=== PATIENT | female | born 1945 | race Caucasian/White ===

== ENCOUNTER 2019-09-01 14:49 | Inpatient (IN) | payer MEDICARE, OTHER ==
[~2019-09-01] VITALS: Ht 152.4 cm; Wt 82.1 kg
[2019-09-01] MEDS ORDERED: Z GUARD REMEDY PASTE 57 GM TUBE TOP PRN (17:30)
[2019-09-01 17:56] VITALS: BP 136/55
[2019-09-01] MEDS ORDERED: MELA3TAB52 PO (18:18)
[2019-09-01] MEDS ORDERED: DEXT1DRO3 EACHEYE (18:18)
[2019-09-01] MEDS ORDERED: GABA-532 PO (18:18)
[2019-09-01] MEDS ORDERED: CITA20TA16 PO (18:18)
[2019-09-01] MEDS ORDERED: PROT30LI PO (18:18)
[2019-09-01] MEDS ORDERED: ASCO-375 PO (18:18)
[2019-09-01] MEDS ORDERED: GLIP5TAB13 PO (18:18)
[2019-09-01] MEDS ORDERED: AMLO5TAB9 PO (18:18)
[2019-09-01] MEDS ORDERED: EMPA25TA PO (18:18)
[2019-09-01] MEDS ORDERED: BETA1TAB19 PO (18:18)
[2019-09-01] MEDS ORDERED: ACET-2154 PO (18:18)
[2019-09-01] MEDS ORDERED: CEFT2VIA14 IV (18:18)
[2019-09-01] MEDS ORDERED: LACT10SO PO (18:18)
[2019-09-01] MEDS ORDERED: BISA10SU61 RC (18:18)
[2019-09-01] MEDS ORDERED: ACID1TAB4 PO (18:18)
[2019-09-01] MEDS ORDERED: SIMV-49 PO (18:18)
[2019-09-01] MEDS ORDERED: LACTULOSE 20 G/30 ML LIQUID UDC PO PRN (18:45)
[2019-09-01] MEDS ORDERED: POLYVINYL ALCOHOL OPHT DROPS 15 ML BOTTLE EACHEYE PRN (18:45)
[2019-09-01] MEDS ORDERED: GABAPENTIN 100 MG CAPSULE PO SCH (18:45)
[2019-09-01] MEDS ORDERED: BISACODYL 10 MG SUPP.RECT RC PRN (18:45)
--- NOTE | 2019-09-01 19:03 | NUR ---
Admitted this 74 y/o female from [facility] diagnosed with left great toe osteomyelitis. Patient is alert, oriented x 3, not in any form of distress, on room air. She denies any pain or discomfort. Patient oriented to staff, room and use of room devices with verbalized understanding. With right upper arm midline with 2 ports, patent with no signs of infection. Left foot wrapped with noah bandage, clean and dry. Routine admission care done. Assisted with her needs. Call light and frequently used items placed within patient's reach. Dr. Lugo made aware of admission. Dr. Galvan informed of admission, verified medications and given orders for CBC, CMP in am as well as continue accu-checks ACHS, no sliding scale. Call light and frequently used items placed within patient's reach. Safety measures maintained.
[2019-09-01 20:09] VITALS: BP 119/50
[2019-09-01] MEDS ORDERED: SIMVASTATIN 40 MG TABLET PO SCH (21:00)
[2019-09-01] MEDS: CEFTRIAXONE 2 G in IV DEXTROSE 5% 100 ML IV SCH (21:05)
[2019-09-01] MEDS: ATORVASTATIN 20 MG TABLET PO SCH (21:05)
[2019-09-01] MEDS: GABAPENTIN 100 MG CAPSULE PO SCH (21:05)
[2019-09-01] MEDS: MELATONIN 3 MG TABLET PO SCH (21:05)
[2019-09-01] MEDS: BLOOD SUGAR DIAGNOSTIC 1 EACH STRIP VI SCH (21:50)
[2019-09-02 00:12] VITALS: BP 132/54
[2019-09-02 04:15] VITALS: BP 132/54
--- NOTE | 2019-09-02 06:11 | NUR ---
Pt slept comfortably t/o the night. Pertinent assessment done during admission last night. All needs attended to promptly. Pt refused to have picture taken, offered last night and this morning. Explained purpose and still refused. Safety measures maintained. Call light and personal items within reach. Will endorse accordingly. Continue to monitor. Addendum: 09/02/19 at 0641 by Francois Mccrary RN pt agreed to take pic of sacrum and groin area
[2019-09-02 06:31] LABS: BASOPHILS % (AUTO) 0.5 % (0.0-2.0); EOSINOPHILS # (AUTO) 0.2 K/uL (0.0-0.7); EOSINOPHILS % (AUTO) 2.4 % (0.0-7.0); HEMATOCRIT 29.5 % (31.2-41.9); HEMOGLOBIN 9.4 g/dL (10.9-14.3); LYMPHOCYTES # (AUTO) 1.6 K/uL (20.0-40.0); LYMPHOCYTES % (AUTO) 16.8 % (20.5-51.5); MEAN CORPUSCULAR HEMOGLOBIN 27.3 uug (24.7-32.8); MEAN CORPUSCULAR HGB CONC 32 g/dL (32.3-35.6); MEAN CORPUSCULAR VOLUME 85.3 fL (75.5-95.3); MONOCYTES # (AUTO) 0.9 K/uL (2.0-10.0); MONOCYTES % (AUTO) 9.9 % (0.0-11.0); NEUTROPHILS # (AUTO) 6.6 K/uL (1.8-8.9); NEUTROPHILS % (AUTO) 70.4 % (38.5-71.5); PLATELET COUNT (AUTO) 255 K/uL (179-408); RED BLOOD CELL COUNT(AUTO) 3.45 MIL/uL (3.63-4.92); WHITE BLOOD COUNT (AUTO) 9.3 K/uL (3.8-11.8)
[2019-09-02] MEDS: BLOOD SUGAR DIAGNOSTIC 1 EACH STRIP VI SCH ×4 (06:36→21:13)
[2019-09-02 06:57] LABS: ALANINE AMINOTRANSFERASE 14 U/L (14-59); ALKALINE PHOSPHATASE 73 U/L (50-136); ASPARTATE AMINOTRANSFERASE 18 U/L (15-37); BILIRUBIN,TOTAL 0.2 mg/dL (0.2-1.0); CARBON DIOXIDE 28 mmol/L (21-32); CHLORIDE 107 mmol/L (98-107); CREATININE 2.3 mg/dL (0.6-1.3); GLUCOSE 113 mg/dL (74-106); POTASSIUM 4.2 mmol/L (3.5-5.1); TOTAL PROTEIN, SERUM 7.5 g/dL (6.4-8.2); UREA NITROGEN, BLOOD 62 mg/dL (7-18)
[2019-09-02] MEDS ORDERED: glipiZIDE 5 MG TABLET PO SCH (07:30)
[2019-09-02 08:00] VITALS: BP 117/51
[2019-09-02] MEDS: GABAPENTIN 100 MG CAPSULE PO SCH ×2 (08:49→17:19)
[2019-09-02] MEDS: ACIDOPHILUS/BULGARICUS CHEW TAB PO SCH (08:49)
[2019-09-02] MEDS: BETA CAROTENE/VIT C & E/MIN TABLET PO SCH (08:49)
[2019-09-02] MEDS: CITALOPRAM 20 MG TABLET PO SCH (08:49)
[2019-09-02] MEDS: AMLODIPINE 5 MG TABLET PO SCH (08:49)
[2019-09-02] MEDS: PROTEIN SUPPLEMENT (PROSTAT) 30 ML LIQUID PO SCH ×2 (08:50→17:20)
[2019-09-02] MEDS: ASCORBIC ACID 500 MG TABLET PO SCH (08:50)
[2019-09-02] MEDS ORDERED: PATIENT MAY USE OWN MED- MD OK PO SCH ×2 (09:00)
[2019-09-02] MEDS ORDERED: HOME MED MISCELLANEOUS PO SCH (09:00)
--- NOTE | 2019-09-02 11:22 | NUR ---
WOUND CARE CONSULT: PT REFUSED SKIN ASSESSMENT BUT PHOTO DOCUMENTATION FROM ADMISSION SHOWS REDNESS WITH RASH AND PEELING SKIN TO SACRAL/BUTTOCKS AREA AND INNER THIGHS/PERINEUM, PRESENT ON ADMISSION. RECOMMENDATIONS MADE FOR SKIN CARE AND PROTECTION. DISCUSSED WITH NURSING STAFF. WILL SEE PRN. JOHNSON IN AGREEMENT WITH PLAN OF CARE.
[2019-09-02] MEDS ORDERED: DEXTROSE 50% 50 ML DISP.SYRIN IV PRN (11:45)
[2019-09-02] MEDS: INSULIN REGULAR, HUMAN 300 UNIT/3 ML VIAL SQ PRN ×2 (13:02→21:14)
[2019-09-02 16:26] VITALS: BP 112/41
[2019-09-02] MEDS: glipiZIDE 5 MG TABLET PO SCH (17:19)
[2019-09-02] MEDS: CLOTRIMAZOLE 1% CREAM 30 GM TUBE TOP SCH (17:19)
--- NOTE | 2019-09-02 17:26 | NUR ---
pt refused to have accucheck done because she states she does not need insulin. pt also refused to turn and have clomitrazole cream applied. will continue to attend to needs.
[2019-09-02 20:33] VITALS: BP 127/52
[2019-09-02] MEDS: ACETAMINOPHEN 325 MG TABLET PO PRN (21:06)
[2019-09-02] MEDS: ATORVASTATIN 20 MG TABLET PO SCH (21:06)
[2019-09-02] MEDS: MELATONIN 3 MG TABLET PO SCH (21:06)
[2019-09-02] MEDS: CEFTRIAXONE 2 G in IV DEXTROSE 5% 100 ML IV SCH (21:07)
[2019-09-03 04:53] VITALS: BP 125/53
--- NOTE | 2019-09-03 05:18 | NUR ---
Received patient resting in bed. No signs and symptoms of distress noted, no SOB, on RA. Patient is alert, oriented x 4, denies any pain or discomfort. Vitals stable, gave Tylenol for low grade fever 100.4. Patient received due medications. Accucheck 179, patient refused coverage with insulin states she take metformin in the morning. Infused IV antibiotic, no reaction noted. Patient has redness on groin, buttox and inner thighs, refused Lotrimin cream,cleansed and dried skin after incontinence. Skin is intact, ALBERTO midline with 2 ports, patent with no signs of infection. Left foot wrapped with noah bandage, clean and dry. Routine PM care completed. All needs attended too. safety precautions in place, bed locked and lowered, bed railsx2 and Call light and frequently used items placed within patient's reach. Will continue plan of care, endorse AM shift nurse accordingly.
--- NOTE | 2019-09-03 05:46 | NUR ---
Patient slept through the night, no events reported. Am care completed Lotrimin cream applied to affected areas. Kept clean dry and comfortable, all needs attended to promptly.
[2019-09-03] MEDS: glipiZIDE 5 MG TABLET PO SCH ×2 (06:58→17:27)
[2019-09-03] MEDS: BLOOD SUGAR DIAGNOSTIC 1 EACH STRIP VI SCH (07:11)
[2019-09-03] MEDS: ASCORBIC ACID 500 MG TABLET PO SCH (08:57)
[2019-09-03] MEDS: CITALOPRAM 20 MG TABLET PO SCH (08:57)
[2019-09-03] MEDS: GABAPENTIN 100 MG CAPSULE PO SCH ×2 (08:57→17:23)
[2019-09-03] MEDS: BETA CAROTENE/VIT C & E/MIN TABLET PO SCH (08:58)
[2019-09-03] MEDS: ACIDOPHILUS/BULGARICUS CHEW TAB PO SCH (08:58)
[2019-09-03] MEDS: AMLODIPINE 5 MG TABLET PO SCH (08:59)
[2019-09-03] MEDS: PROTEIN SUPPLEMENT (PROSTAT) 30 ML LIQUID PO SCH ×2 (09:07→18:55)
[2019-09-03 10:06] LABS: BASOPHILS # (AUTO) 0.1 K/uL (0.0-8.0); BASOPHILS % (AUTO) 0.7 % (0.0-2.0); EOSINOPHILS # (AUTO) 0.3 K/uL (0.0-0.7); HEMATOCRIT 28.4 % (31.2-41.9); HEMOGLOBIN 9.2 g/dL (10.9-14.3); LYMPHOCYTES # (AUTO) 1.6 K/uL (20.0-40.0); LYMPHOCYTES % (AUTO) 17.1 % (20.5-51.5); MEAN CORPUSCULAR HEMOGLOBIN 27.4 uug (24.7-32.8); MEAN CORPUSCULAR HGB CONC 32 g/dL (32.3-35.6); MEAN CORPUSCULAR VOLUME 84.6 fL (75.5-95.3); MONOCYTES # (AUTO) 0.7 K/uL (2.0-10.0); NEUTROPHILS # (AUTO) 6.6 K/uL (1.8-8.9); NEUTROPHILS % (AUTO) 71.2 % (38.5-71.5); PLATELET COUNT (AUTO) 238 K/uL (179-408); RED BLOOD CELL COUNT(AUTO) 3.36 MIL/uL (3.63-4.92); WHITE BLOOD COUNT (AUTO) 9.2 K/uL (3.8-11.8)
[2019-09-03 10:18] LABS: ALANINE AMINOTRANSFERASE 26 U/L (14-59); ALKALINE PHOSPHATASE 75 U/L (50-136); ASPARTATE AMINOTRANSFERASE 30 U/L (15-37); BILIRUBIN,TOTAL 0.1 mg/dL (0.2-1.0); CARBON DIOXIDE 28 mmol/L (21-32); CHLORIDE 104 mmol/L (98-107); CREATININE 2.5 mg/dL (0.6-1.3); GLUCOSE 276 mg/dL (74-106); POTASSIUM 4.1 mmol/L (3.5-5.1); TOTAL PROTEIN, SERUM 7.3 g/dL (6.4-8.2); UREA NITROGEN, BLOOD 62 mg/dL (7-18)
[2019-09-03] MEDS: CLOTRIMAZOLE 1% CREAM 30 GM TUBE TOP SCH ×2 (10:59→17:29)
--- NOTE | 2019-09-03 11:00 | NUR ---
Received patient in bed, pt is AAO x 2-3, able to express needs. NO acute distress noted. Vital signs taken and stable. Pt. denies pain at this time. Pt. refused PT/OT therapy. Explained and educated Pt. the needs and benefits of PT/OT. Patient also refused Tylenol before PT/OT stating she does not need pain pill. Patient seen by FLIGHT OPERATIONS SPECIALIST and FLIGHT OPERATIONS SPECIALIST explained all procedures to patient and informed Pt. to ask for pain pill whenever needed during therapy. Patient agreed All other needs attended, safety measures in place, call light left within easy reach and will continue with care.
--- NOTE | 2019-09-03 11:15 | NUR ---
PICC line on Right upper arm intact and patent. Flushed well.
[2019-09-03 16:00] VITALS: BP 131/55
--- NOTE | 2019-09-03 16:51 | NUR ---
Patient in stable condition, No acute distress noted. Pt. is uncooperative with care. Refused to get skin cleaned and to apply treatment for rash. Left foot with noah rap on and elevated. Pt. agreed to get cleaned and to apply Lotrimin after explaining several times; still refused to turn or repositioned because she has pain. When asked if she wanted pain pill. Patient refused. Skin cleaned, dried and applied Lotrimin. Patient still noted with redness on the perineal and buttocks area. All other needs attended and will continue with care.
--- NOTE | 2019-09-03 19:55 | NUR ---
Sleeping during initial rounds. No s/s of respiratory distress noted. Safety measures and fall precaution maintained. Continue care as planned.
[2019-09-03 20:15] VITALS: BP 121/44
--- NOTE | 2019-09-03 20:25 | NUR ---
Patient refused to be swab for Covid as ordered. Will re-try again later.
[2019-09-03] MEDS: MELATONIN 3 MG TABLET PO SCH (20:58)
[2019-09-03] MEDS: ATORVASTATIN 20 MG TABLET PO SCH (20:58)
[2019-09-03] MEDS: CEFTRIAXONE 2 G in IV DEXTROSE 5% 100 ML IV SCH (20:58)
[2019-09-04 04:15] VITALS: BP 121/48
--- NOTE | 2019-09-04 06:09 | NUR ---
Shift End Report: VS stable. Slept good. No complaint presented all night. No fall/injury. All needs attended and met. Bed bath given. Good skin/ilana care rendered after each incontinence. No significant event reported. Continue current rehab plan of care.
--- NOTE | 2019-09-04 06:11 | NUR ---
Patient again refused to be swab for Covid. Unable to obtain urine specimen as ordered due to bladder incontinence. Unable to comply with instruction. Kept telling nurses that she's going home today and no need to collect it. Charge nurse made aware.
[2019-09-04 06:32] LABS: BASOPHILS # (AUTO) 0.1 K/uL (0.0-8.0); BASOPHILS % (AUTO) 0.8 % (0.0-2.0); EOSINOPHILS # (AUTO) 0.3 K/uL (0.0-0.7); EOSINOPHILS % (AUTO) 3.7 % (0.0-7.0); HEMATOCRIT 27.3 % (31.2-41.9); LYMPHOCYTES # (AUTO) 1.9 K/uL (20.0-40.0); LYMPHOCYTES % (AUTO) 22.8 % (20.5-51.5); MEAN CORPUSCULAR HEMOGLOBIN 27.9 uug (24.7-32.8); MEAN CORPUSCULAR HGB CONC 33 g/dL (32.3-35.6); MEAN CORPUSCULAR VOLUME 84.8 fL (75.5-95.3); MONOCYTES % (AUTO) 11.7 % (0.0-11.0); NEUTROPHILS # (AUTO) 5.1 K/uL (1.8-8.9); PLATELET COUNT (AUTO) 246 K/uL (179-408); RED BLOOD CELL COUNT(AUTO) 3.22 MIL/uL (3.63-4.92); WHITE BLOOD COUNT (AUTO) 8.3 K/uL (3.8-11.8)
[2019-09-04] MEDS: glipiZIDE 5 MG TABLET PO SCH ×2 (09:03→16:45)
[2019-09-04] MEDS: BETA CAROTENE/VIT C & E/MIN TABLET PO SCH (09:04)
[2019-09-04] MEDS: GABAPENTIN 100 MG CAPSULE PO SCH ×2 (09:04→16:44)
[2019-09-04] MEDS: ACIDOPHILUS/BULGARICUS CHEW TAB PO SCH (09:04)
[2019-09-04] MEDS: CITALOPRAM 20 MG TABLET PO SCH (09:04)
[2019-09-04] MEDS: ASCORBIC ACID 500 MG TABLET PO SCH (09:04)
[2019-09-04] MEDS: AMLODIPINE 5 MG TABLET PO SCH (09:04)
[2019-09-04] MEDS: CLOTRIMAZOLE 1% CREAM 30 GM TUBE TOP SCH ×2 (09:05→16:46)
[2019-09-04] MEDS: PROTEIN SUPPLEMENT (PROSTAT) 30 ML LIQUID PO SCH ×2 (09:05→16:45)
--- NOTE | 2019-09-04 09:21 | NUR ---
Received patient awake in bed in stable condition. Patient consume 100% for breakfast. Patient continue to refuse urine collection despite of encouragement. will continue monitor for safety.
[2019-09-04 09:25] VITALS: BP 124/53
[2019-09-04 10:15] LABS: CARBON DIOXIDE 26 mmol/L (21-32); CHLORIDE 105 mmol/L (98-107); CREATINE KINASE, TOTAL 79 U/L (26-192); CREATININE 2.3 mg/dL (0.6-1.3); GLUCOSE 93 mg/dL (74-106); MAGNESIUM 2.6 mg/dL (1.8-2.4); UREA NITROGEN, BLOOD 56 mg/dL (7-18)
--- NOTE | 2019-09-04 12:49 | NUR ---
INTERDISCIPLINARY TEAM CONFERENCE
--- NOTE | 2019-09-04 14:38 | NUR ---
Patient agree for swab for covid 19 test. sent to lab. awaiting result
[2019-09-04 15:54] VITALS: BP 121/54
--- NOTE | 2019-09-04 16:12 | NUR ---
INDIVIDUALIZED PLAN OF CARE
--- NOTE | 2019-09-04 17:55 | NUR ---
Patient refuse catheterization for urine collection despite of education and encouragement. Patient tried to get thru clean catch but it got contaminated with stool.
[2019-09-04 20:22] VITALS: BP 133/54
[2019-09-04] MEDS: ATORVASTATIN 20 MG TABLET PO SCH (20:23)
[2019-09-04] MEDS: MELATONIN 3 MG TABLET PO SCH (20:23)
[2019-09-04] MEDS: CEFTRIAXONE 2 G in IV DEXTROSE 5% 100 ML IV SCH (20:24)
--- NOTE | 2019-09-04 20:55 | NUR ---
awake upon initial rounds. AAO x3-4 . Right arm PICC line intact flushed and patent. Patient on IV ABT Rocephin given as scheduled. Tolerated well. No ill effects noted. VSS. Needs attended. Compliant with meds and care. Incontinent of bowel and bladder. No BM noted this shift. LLE dressing clean dry and intact. No complaints of pain or discomfort noted. Will monitor patient. Fall precautions maintained. Siderails up for safety. Call valdez within reach.
[2019-09-05 04:48] VITALS: BP 124/54
--- NOTE | 2019-09-05 06:08 | NUR ---
End codi shift notes: Quiet night. Needs attended. VSS. Kept comfortable. Incontinent of urine. Kept clean and dry. Refused to be straight cath for urine specimen. Rt PICC intact, flushed and patent. No acute distress noted. Left foot dressing intact. No complaints presented during shift.
[2019-09-05 06:40] LABS: BASOPHILS # (AUTO) 0.1 K/uL (0.0-8.0); BASOPHILS % (AUTO) 1.1 % (0.0-2.0); EOSINOPHILS # (AUTO) 0.4 K/uL (0.0-0.7); EOSINOPHILS % (AUTO) 4.3 % (0.0-7.0); HEMATOCRIT 26.6 % (31.2-41.9); HEMOGLOBIN 8.6 g/dL (10.9-14.3); LYMPHOCYTES # (AUTO) 2.1 K/uL (20.0-40.0); LYMPHOCYTES % (AUTO) 25.6 % (20.5-51.5); MEAN CORPUSCULAR HEMOGLOBIN 27.4 uug (24.7-32.8); MEAN CORPUSCULAR HGB CONC 32 g/dL (32.3-35.6); MEAN CORPUSCULAR VOLUME 84.7 fL (75.5-95.3); MONOCYTES # (AUTO) 0.9 K/uL (2.0-10.0); MONOCYTES % (AUTO) 10.4 % (0.0-11.0); NEUTROPHILS # (AUTO) 4.8 K/uL (1.8-8.9); NEUTROPHILS % (AUTO) 58.6 % (38.5-71.5); PLATELET COUNT (AUTO) 252 K/uL (179-408); RED BLOOD CELL COUNT(AUTO) 3.14 MIL/uL (3.63-4.92); WHITE BLOOD COUNT (AUTO) 8.2 K/uL (3.8-11.8)
[2019-09-05 07:11] LABS: ALANINE AMINOTRANSFERASE 23 U/L (14-59); ALKALINE PHOSPHATASE 73 U/L (50-136); ASPARTATE AMINOTRANSFERASE 25 U/L (15-37); BILIRUBIN,TOTAL 0.2 mg/dL (0.2-1.0); CARBON DIOXIDE 30 mmol/L (21-32); CHLORIDE 106 mmol/L (98-107); CREATININE 2.3 mg/dL (0.6-1.3); GLUCOSE 101 mg/dL (74-106); MAGNESIUM 2.7 mg/dL (1.8-2.4); PHOSPHOROUS 5.1 mg/dL (2.5-4.9); UREA NITROGEN, BLOOD 55 mg/dL (7-18)
--- NOTE | 2019-09-05 07:46 | NUR ---
Received patient in bed, awake, AAO x 4. In NO acute distress. Pt. denies pain at this time. Pt. stated she wants juice and crackers, offered patient. All safety measures in place and will continue with care.
[2019-09-05 08:51] VITALS: BP 119/46
[2019-09-05] MEDS: glipiZIDE 5 MG TABLET PO SCH ×2 (08:55→16:45)
[2019-09-05] MEDS: GABAPENTIN 100 MG CAPSULE PO SCH ×2 (08:56→16:41)
[2019-09-05] MEDS: CITALOPRAM 20 MG TABLET PO SCH (08:56)
[2019-09-05] MEDS: BETA CAROTENE/VIT C & E/MIN TABLET PO SCH (08:56)
[2019-09-05] MEDS: ASCORBIC ACID 500 MG TABLET PO SCH (08:57)
[2019-09-05] MEDS: ACIDOPHILUS/BULGARICUS CHEW TAB PO SCH (08:57)
[2019-09-05] MEDS: CLOTRIMAZOLE 1% CREAM 30 GM TUBE TOP SCH ×2 (08:58→16:46)
[2019-09-05] MEDS: AMLODIPINE 5 MG TABLET PO SCH (09:02)
[2019-09-05] MEDS: PROTEIN SUPPLEMENT (PROSTAT) 30 ML LIQUID PO SCH ×2 (09:05→16:41)
--- NOTE | 2019-09-05 16:10 | NUR ---
Patient and son (Jimmy) asked not to take patient's BP on the legs and to take it on the arms regardless of history.
[2019-09-05 16:12] VITALS: BP 114/47
--- NOTE | 2019-09-05 16:14 | NUR ---
Patient refused to take urine sample using straight in and out cath.
--- NOTE | 2019-09-05 16:50 | NUR ---
Paged Wu Lopez regarding dressing change for left toe and with new orders. see orders.
--- NOTE | 2019-09-05 18:00 | NUR ---
Patient in stable condition, NO acute distress or any new change of condition noted. PICC line on Right upper arm intact and patent. Due medications administered and tolerated well. Left foot with dressing in place and noah rap. BLE elevated. Skin kept clean and dry. Patient still noted with redness on perineal and buttock area, Lotrimin cream applied as ordered. Informed patient to be repositioned but still refused. Also refuses to get changed at times. All other needs attended, call light left within easy reach and will continue with care.
[2019-09-05 20:18] VITALS: BP 135/53
[2019-09-05] MEDS: CEFTRIAXONE 2 G in IV DEXTROSE 5% 100 ML IV SCH (20:33)
[2019-09-05] MEDS: MELATONIN 3 MG TABLET PO SCH (21:16)
[2019-09-05] MEDS: ATORVASTATIN 20 MG TABLET PO SCH (21:16)
--- NOTE | 2019-09-05 21:55 | NUR ---
Received pt resting in bed and talking on the phone. AAO x3-4. No acute distress noted. Denies pain discomfort. Right upper arm picc line, patent and intact. Due meds given as ordered, tolerated well. Skin care rendered. Safety measures maintained. Call light and personal items within reach. Will continue to monitor.
[2019-09-06 06:21] VITALS: BP 131/51
[2019-09-06 08:00] VITALS: BP 132/53
[2019-09-06] MEDS: BETA CAROTENE/VIT C & E/MIN TABLET PO SCH (08:45)
[2019-09-06] MEDS: ACIDOPHILUS/BULGARICUS CHEW TAB PO SCH (08:45)
[2019-09-06] MEDS: glipiZIDE 5 MG TABLET PO SCH ×2 (08:45→17:11)
[2019-09-06] MEDS: CITALOPRAM 20 MG TABLET PO SCH (08:46)
[2019-09-06] MEDS: GABAPENTIN 100 MG CAPSULE PO SCH ×2 (08:46→17:08)
[2019-09-06] MEDS: ASCORBIC ACID 500 MG TABLET PO SCH (08:46)
[2019-09-06] MEDS: AMLODIPINE 5 MG TABLET PO SCH (08:48)
[2019-09-06] MEDS: CLOTRIMAZOLE 1% CREAM 30 GM TUBE TOP SCH ×2 (08:49→17:10)
[2019-09-06] MEDS: PROTEIN SUPPLEMENT (PROSTAT) 30 ML LIQUID PO SCH ×2 (08:49→17:10)
--- NOTE | 2019-09-06 09:07 | NUR ---
Patient noted resting in bed, no facial cues of pain, no signs of distress noted, call light in reach, bed locked and lowest position, all needs met at this time
[2019-09-06 16:59] VITALS: BP 140/53
--- NOTE | 2019-09-06 19:20 | NUR ---
Received patient lying in bed. AAOX3-4. In no acute distress. Denies any pain or SOB at this time. Right upper arm PICC line intact and patent. Right great toe dressing intact. Safety measure initiated and call valdez within reached.
[2019-09-06 20:24] VITALS: BP 128/60
[2019-09-06] MEDS: MELATONIN 3 MG TABLET PO SCH (20:30)
[2019-09-06] MEDS: ATORVASTATIN 20 MG TABLET PO SCH (20:30)
[2019-09-06] MEDS: CEFTRIAXONE 2 G in IV DEXTROSE 5% 100 ML IV SCH (20:31)
[2019-09-06 23:04] LABS: *BILIRUBIN,URIN NEGATIVE (NEGATIVE); *BLOOD, URINE 1+ (NEGATIVE); *CLARITY,URINE SLIGHTLY CLOUDY (CLEAR); *COLOR,URINE LIGHT YELLOW (YELLOW); *KETONES,URINE NEGATIVE (NEGATIVE); *UROBILINOGEN,URINE 0.2 E.U./dl (NORMAL); LEUKOCYTE ESTERASE ,URINE 1+ (NEGATIVE); NITRITE, URINE NEGATIVE (NEGATIVE)
[2019-09-06 23:10] LABS: UGLUCOSE 3+ (NEGATIVE)
[2019-09-06 23:11] LABS: *CREATININE,URINE 29.5 mg/dL (30-125); *URINE TOTAL PROTEIN RANDOM 28.2 mg/dL (<150/24HR)
[2019-09-06 23:15] LABS: BACTERIA,URINE MODERATE /HPF (NONE SEEN); SQUAMOUS EPITHELIAL CELL,UR FEW /HPF (NONE SEEN)
--- NOTE | 2019-09-06 23:18 | NUR ---
Informed Dr. Michel regarding critical urine glucose of 3+ with no new order given.
--- NOTE | 2019-09-07 06:07 | NUR ---
Slept well last night In no acute distress. Denies any pain or SOB. Right upper arm PICC line intact and patent. No adverse reaction noted from IV ABX. Right great toe dressing intact. Safety measure maintained and call valdez within reached.
[2019-09-07 06:14] VITALS: BP 121/56
[2019-09-07] MEDS: glipiZIDE 5 MG TABLET PO SCH ×2 (06:31→16:34)
[2019-09-07] MEDS ORDERED: DEXTROSE 50% 50 ML DISP.SYRIN IV PRN (07:30)
[2019-09-07 08:00] VITALS: BP 128/50
[2019-09-07] MEDS: CITALOPRAM 20 MG TABLET PO SCH (08:10)
[2019-09-07] MEDS: GABAPENTIN 100 MG CAPSULE PO SCH ×2 (08:10→16:35)
[2019-09-07] MEDS: ASCORBIC ACID 500 MG TABLET PO SCH (08:10)
[2019-09-07] MEDS: BETA CAROTENE/VIT C & E/MIN TABLET PO SCH (08:10)
[2019-09-07] MEDS: BLOOD SUGAR DIAGNOSTIC 1 EACH STRIP VI SCH ×3 (08:10→16:42)
[2019-09-07] MEDS: ACIDOPHILUS/BULGARICUS CHEW TAB PO SCH (08:10)
[2019-09-07] MEDS: PROTEIN SUPPLEMENT (PROSTAT) 30 ML LIQUID PO SCH ×2 (08:11→16:35)
[2019-09-07] MEDS: AMLODIPINE 5 MG TABLET PO SCH (08:11)
[2019-09-07] MEDS: CLOTRIMAZOLE 1% CREAM 30 GM TUBE TOP SCH ×2 (08:12→16:35)
[2019-09-07] MEDS: LINAGLIPTIN 5 MG TABLET PO SCH (08:13)
[2019-09-07 11:07] LABS: COMPLEMENT, C3 SERUM 108 mg/dL (82-167); COMPLEMENT, C4 SERUM 36 mg/dL (14-44)
[2019-09-07 13:12] LABS: HEPATITIS B SURFACE AB Non Reactive (.); HEPATITIS B SURFACE AG Negative (Negative)
[2019-09-07 15:09] LABS: A/G RATIO 0.6 (0.7-1.7); ALBUMIN 2.4 g/dL (2.9-4.4); ALPHA-1-GLOBULIN 0.4 g/dL (0.0-0.4); BETA GLOBULIN 0.9 g/dL (0.7-1.3); GAMMA GLOBULIN 1.6 g/dL (0.4-1.8); GLOBULIN, TOTAL 3.9 g/dL (2.2-3.9); M-SPIKE Not Observed g/dL (Not Observed)
[2019-09-07 16:00] VITALS: BP 126/47
[2019-09-07 20:26] VITALS: BP 127/50
[2019-09-07] MEDS: ACETAMINOPHEN 325 MG TABLET PO PRN (21:15)
[2019-09-07] MEDS: ATORVASTATIN 20 MG TABLET PO SCH (21:55)
[2019-09-07] MEDS: CEFTRIAXONE 2 G in IV DEXTROSE 5% 100 ML IV SCH (21:55)
[2019-09-07] MEDS: MELATONIN 3 MG TABLET PO SCH (21:56)
--- NOTE | 2019-09-07 22:00 | NUR ---
Received pt resting in bed. AAO x-4. No acute distress noted. Denies any pain or discomfort. Patient requested to sit in wheelchair. Received all due medications. Right upper arm picc line, patent and intact, infused antibiotics, tolerated well. PM care completed. Patient kept clean dry and comfortable. Transferred back to bed, patient is resting. All needs attended to, all items within patient reach. Safety measures maintained. Will continue to monitor.
--- NOTE | 2019-09-08 05:36 | NUR ---
Patient slep though the night with no complaints/discomfort. In no acute distress. Denies any pain or SOB. Right upper arm PICC line intact and patent. Right great toe dressing intact. Safety measure maintained and call valdez within reached. Kept patient clean, dry and comfortable. All needs attended to promptly. Call light and personal items within patient reach. Safety measure maintained. Will continue plan of acre and endorse next shift accordingly.
[2019-09-08 06:16] VITALS: BP 98/50
[2019-09-08] MEDS: glipiZIDE 5 MG TABLET PO SCH ×2 (06:25→17:30)
[2019-09-08] MEDS: BLOOD SUGAR DIAGNOSTIC 1 EACH STRIP VI SCH ×3 (06:35→16:30)
[2019-09-08 06:54] LABS: BASOPHILS # (AUTO) 0.1 K/uL (0.0-8.0); BASOPHILS % (AUTO) 1.1 % (0.0-2.0); EOSINOPHILS # (AUTO) 0.4 K/uL (0.0-0.7); EOSINOPHILS % (AUTO) 5.2 % (0.0-7.0); HEMATOCRIT 28.7 % (31.2-41.9); HEMOGLOBIN 9.2 g/dL (10.9-14.3); LYMPHOCYTES # (AUTO) 1.9 K/uL (20.0-40.0); LYMPHOCYTES % (AUTO) 24.4 % (20.5-51.5); MEAN CORPUSCULAR HEMOGLOBIN 27.2 uug (24.7-32.8); MEAN CORPUSCULAR HGB CONC 32 g/dL (32.3-35.6); MEAN CORPUSCULAR VOLUME 84.6 fL (75.5-95.3); MONOCYTES # (AUTO) 0.8 K/uL (2.0-10.0); MONOCYTES % (AUTO) 10.5 % (0.0-11.0); NEUTROPHILS # (AUTO) 4.7 K/uL (1.8-8.9); NEUTROPHILS % (AUTO) 58.8 % (38.5-71.5); PLATELET COUNT (AUTO) 280 K/uL (179-408); RED BLOOD CELL COUNT(AUTO) 3.39 MIL/uL (3.63-4.92)
[2019-09-08 07:07] LABS: ALANINE AMINOTRANSFERASE 22 U/L (14-59); ALKALINE PHOSPHATASE 68 U/L (50-136); ASPARTATE AMINOTRANSFERASE 22 U/L (15-37); BILIRUBIN,TOTAL 0.1 mg/dL (0.2-1.0); CARBON DIOXIDE 28 mmol/L (21-32); CHLORIDE 108 mmol/L (98-107); CREATININE 2.1 mg/dL (0.6-1.3); GLUCOSE 79 mg/dL (74-106); MAGNESIUM 2.6 mg/dL (1.8-2.4); PHOSPHOROUS 4.6 mg/dL (2.5-4.9); POTASSIUM 4.6 mmol/L (3.5-5.1); UREA NITROGEN, BLOOD 46 mg/dL (7-18)
[2019-09-08 08:53] VITALS: BP 123/51
[2019-09-08] MEDS: LINAGLIPTIN 5 MG TABLET PO SCH (08:58)
[2019-09-08] MEDS: GABAPENTIN 100 MG CAPSULE PO SCH ×2 (08:58→17:30)
[2019-09-08] MEDS: ACIDOPHILUS/BULGARICUS CHEW TAB PO SCH (08:58)
[2019-09-08] MEDS: ASCORBIC ACID 500 MG TABLET PO SCH (08:58)
[2019-09-08] MEDS: CITALOPRAM 20 MG TABLET PO SCH (08:59)
[2019-09-08] MEDS: PROTEIN SUPPLEMENT (PROSTAT) 30 ML LIQUID PO SCH ×2 (08:59→17:31)
[2019-09-08] MEDS: BETA CAROTENE/VIT C & E/MIN TABLET PO SCH (08:59)
[2019-09-08] MEDS: AMLODIPINE 5 MG TABLET PO SCH (08:59)
[2019-09-08] MEDS: CLOTRIMAZOLE 1% CREAM 30 GM TUBE TOP SCH ×2 (09:00→17:31)
[2019-09-08 13:06] LABS: *ANTI-SCLERODERMA-70 AB 0.2 AI (0.0-0.9); *SJOGREN'S ANTI-SS-A <0.2 AI (0.0-0.9); *SJOGREN'S ANTI-SS-B <0.2 AI (0.0-0.9); *SMITH ANTIBODIES <0.2 AI (0.0-0.9); ANTI-DNA(DS) AB, QN 3 IU/mL (0-9)
--- NOTE | 2019-09-08 14:50 | NUR ---
patient is alert, oriented x4, no distress noted, tx continue for perineal area rash. washed with soap and water, kept clean and dry, needs attended timely Addendum: 09/08/19 at 1827 by SENAIT SARMIENTO RN RN patient perineal rash inspected, looks better, not too red, abdominal fold rash not too red either, washed with soap and water, tx applied as ordered, recommended patient to float her heels, floated on pillow, not touching the mattress, patient verbalized understanding of it
[2019-09-08 15:10] VITALS: BP 103/56
[2019-09-08 20:00] VITALS: BP 124/53
--- NOTE | 2019-09-08 20:13 | NUR ---
Patient received resting in bed watching TV. Axox 4, in a very happy mood to see me tonight. No signs and symptoms of distress noted, no SOB noted. Denies any pain or discomfort at this time. Skin intact, Both legs elevated by pillow. Patient is clean and comfortable resting in bed. Call light in reach, safety precaution in place; bed locked and lowest position, all needs met at this time. Will continue to monitor.
[2019-09-08] MEDS: CEFTRIAXONE 2 G in IV DEXTROSE 5% 100 ML IV SCH (21:23)
[2019-09-08] MEDS: MELATONIN 3 MG TABLET PO SCH (21:23)
[2019-09-08] MEDS: ATORVASTATIN 20 MG TABLET PO SCH (21:23)
--- NOTE | 2019-09-09 05:10 | NUR ---
Patient slept though the night with no complaints/discomfort. In no acute distress. Denies any pain or SOB. Right upper arm PICC line intact and patent. All due medications administered. Right great toe dressing intact. Safety measure maintained and call valdez within reached. Kept patient clean, dry and comfortable. All needs attended to promptly. Call light and personal items within patient reach. Safety measure maintained. Will continue plan of care and endorse next shift accordingly.
[2019-09-09 06:09] VITALS: BP 126/43
[2019-09-09] MEDS: glipiZIDE 5 MG TABLET PO SCH ×2 (06:36→17:08)
[2019-09-09] MEDS: BLOOD SUGAR DIAGNOSTIC 1 EACH STRIP VI SCH ×3 (07:31→17:09)
[2019-09-09 08:00] VITALS: BP 123/47
[2019-09-09] MEDS: LINAGLIPTIN 5 MG TABLET PO SCH (09:13)
[2019-09-09] MEDS: ACIDOPHILUS/BULGARICUS CHEW TAB PO SCH (09:13)
[2019-09-09] MEDS: AMLODIPINE 5 MG TABLET PO SCH (09:14)
[2019-09-09] MEDS: BETA CAROTENE/VIT C & E/MIN TABLET PO SCH (09:14)
[2019-09-09] MEDS: PROTEIN SUPPLEMENT (PROSTAT) 30 ML LIQUID PO SCH ×2 (09:15→17:16)
[2019-09-09] MEDS: ASCORBIC ACID 500 MG TABLET PO SCH (09:15)
[2019-09-09] MEDS: CITALOPRAM 20 MG TABLET PO SCH (09:15)
[2019-09-09] MEDS: GABAPENTIN 100 MG CAPSULE PO SCH ×2 (09:16→17:08)
[2019-09-09] MEDS: CLOTRIMAZOLE 1% CREAM 30 GM TUBE TOP SCH ×2 (09:17→17:17)
--- NOTE | 2019-09-09 14:09 | NUR ---
PATIENT DOES NOT LIKE TO CHANGE POSITIONED, STAYS ON HER LEFT SIDE ALL THE TIME, EXPLAINED TO PATIENT THE SKIN RISKS, PATIENT HAS RASHES TO HER BACK, GROIN AREA, THIGH. EXPLAINED IN DETAIL ABOUT IMPORTANCE OF CHANGING POSITION, PATIENT STRONGLY REFUSED TO CHANGE POSITION, CONTINUE TO CONVINCE NAD MONITOR Addendum: 09/09/19 at 1628 by SENAIT SARMIENTO RN RN dressing changed to left big toe as instructed, stitches are intact, no drainage noted, no increased erythema noted, incision line is clean and dry.
[2019-09-09 16:00] VITALS: BP 124/48
[2019-09-09 20:00] VITALS: BP 143/60
[2019-09-09] MEDS: ATORVASTATIN 20 MG TABLET PO SCH (20:32)
[2019-09-09] MEDS: CEFTRIAXONE 2 G in IV DEXTROSE 5% 100 ML IV SCH (20:33)
[2019-09-09] MEDS: MELATONIN 3 MG TABLET PO SCH (20:33)
--- NOTE | 2019-09-09 21:48 | NUR ---
Awake alert and oriented x4 Watching TV upon initial rounds. Call valdez within reach. Fall precautions maintained.Denies any pain nor any discomfort. VSS. Left great toe dressing clean dry and intact. Compliant with meds. Fungal rash all over. Lotrimin cream applied. Incontinent of bowel and bladder. Kept clean and dry. No BM noted this shift. Will monitor patient. Siderails up for safety. Repositioned for comfort.
[2019-09-10 04:00] VITALS: BP 135/53
[2019-09-10] MEDS: BLOOD SUGAR DIAGNOSTIC 1 EACH STRIP VI SCH ×3 (06:43→17:04)
[2019-09-10 06:47] LABS: CARBON DIOXIDE 30 mmol/L (21-32); CHLORIDE 109 mmol/L (98-107); CREATININE 2.1 mg/dL (0.6-1.3); GLUCOSE 83 mg/dL (74-106); POTASSIUM 4.5 mmol/L (3.5-5.1); UREA NITROGEN, BLOOD 48 mg/dL (7-18)
[2019-09-10 08:31] VITALS: BP 126/46
[2019-09-10] MEDS: BETA CAROTENE/VIT C & E/MIN TABLET PO SCH (08:55)
[2019-09-10] MEDS: GABAPENTIN 100 MG CAPSULE PO SCH ×2 (08:56→16:44)
[2019-09-10] MEDS: ASCORBIC ACID 500 MG TABLET PO SCH (08:56)
[2019-09-10] MEDS: LINAGLIPTIN 5 MG TABLET PO SCH (08:56)
[2019-09-10] MEDS: CITALOPRAM 20 MG TABLET PO SCH (08:56)
[2019-09-10] MEDS: ACIDOPHILUS/BULGARICUS CHEW TAB PO SCH (08:56)
[2019-09-10] MEDS: glipiZIDE 5 MG TABLET PO SCH ×2 (09:01→16:44)
[2019-09-10] MEDS: PROTEIN SUPPLEMENT (PROSTAT) 30 ML LIQUID PO SCH ×2 (09:01→17:05)
[2019-09-10] MEDS: AMLODIPINE 5 MG TABLET PO SCH (09:05)
[2019-09-10] MEDS: CLOTRIMAZOLE 1% CREAM 30 GM TUBE TOP SCH ×2 (09:15→17:06)
[2019-09-10 14:40] VITALS: BP 116/44
[2019-09-10 20:00] VITALS: BP 138/52
[2019-09-10] MEDS: MELATONIN 3 MG TABLET PO SCH (21:06)
[2019-09-10] MEDS: ATORVASTATIN 20 MG TABLET PO SCH (21:06)
[2019-09-10] MEDS: CEFTRIAXONE 2 G in IV DEXTROSE 5% 100 ML IV SCH (21:09)
[2019-09-11 04:00] VITALS: BP 113/59
[2019-09-11] MEDS: BLOOD SUGAR DIAGNOSTIC 1 EACH STRIP VI SCH ×3 (06:31→17:29)
[2019-09-11 06:40] LABS: BASOPHILS # (AUTO) 0.1 K/uL (0.0-8.0); BASOPHILS % (AUTO) 1.2 % (0.0-2.0); EOSINOPHILS # (AUTO) 0.4 K/uL (0.0-0.7); EOSINOPHILS % (AUTO) 4.4 % (0.0-7.0); HEMATOCRIT 28.2 % (31.2-41.9); HEMOGLOBIN 9.1 g/dL (10.9-14.3); LYMPHOCYTES % (AUTO) 22.6 % (20.5-51.5); MEAN CORPUSCULAR HEMOGLOBIN 27.2 uug (24.7-32.8); MEAN CORPUSCULAR HGB CONC 32 g/dL (32.3-35.6); MEAN CORPUSCULAR VOLUME 84.7 fL (75.5-95.3); MONOCYTES # (AUTO) 0.8 K/uL (2.0-10.0); MONOCYTES % (AUTO) 8.7 % (0.0-11.0); NEUTROPHILS # (AUTO) 5.6 K/uL (1.8-8.9); NEUTROPHILS % (AUTO) 63.1 % (38.5-71.5); PLATELET COUNT (AUTO) 289 K/uL (179-408); RED BLOOD CELL COUNT(AUTO) 3.33 MIL/uL (3.63-4.92); WHITE BLOOD COUNT (AUTO) 8.9 K/uL (3.8-11.8)
[2019-09-11 06:52] LABS: CARBON DIOXIDE 29 mmol/L (21-32); CHLORIDE 108 mmol/L (98-107); CREATININE 2.1 mg/dL (0.6-1.3); GLUCOSE 85 mg/dL (74-106); POTASSIUM 4.5 mmol/L (3.5-5.1); UREA NITROGEN, BLOOD 50 mg/dL (7-18)
[2019-09-11] MEDS: BETA CAROTENE/VIT C & E/MIN TABLET PO SCH (09:16)
[2019-09-11] MEDS: LINAGLIPTIN 5 MG TABLET PO SCH (09:16)
[2019-09-11] MEDS: ACIDOPHILUS/BULGARICUS CHEW TAB PO SCH (09:16)
[2019-09-11] MEDS: CITALOPRAM 20 MG TABLET PO SCH (09:16)
[2019-09-11] MEDS: GABAPENTIN 100 MG CAPSULE PO SCH ×2 (09:16→17:28)
[2019-09-11] MEDS: glipiZIDE 5 MG TABLET PO SCH ×2 (09:19→17:28)
[2019-09-11] MEDS: ASCORBIC ACID 500 MG TABLET PO SCH (09:19)
[2019-09-11] MEDS: AMLODIPINE 5 MG TABLET PO SCH (09:19)
[2019-09-11] MEDS: CLOTRIMAZOLE 1% CREAM 30 GM TUBE TOP SCH ×2 (09:20→17:30)
[2019-09-11] MEDS: PROTEIN SUPPLEMENT (PROSTAT) 30 ML LIQUID PO SCH ×2 (09:20→17:29)
[2019-09-11 16:00] VITALS: BP 133/58
--- NOTE | 2019-09-11 16:19 | NUR ---
INTERDISCIPLINARY TEAM CONFERENCE
--- NOTE | 2019-09-11 16:40 | NUR ---
patient is alert, oriented x3, no sob, resp even nonlabored, dressing changed, incision is dry and clean, patient refused to turn to side, stays on her back, still noted with fungus rash, heels floated.
[2019-09-11] MEDS: CEFTRIAXONE 2 G in IV DEXTROSE 5% 100 ML IV SCH (20:12)
[2019-09-11 20:18] VITALS: BP 121/50
[2019-09-11] MEDS: MELATONIN 3 MG TABLET PO SCH (21:15)
[2019-09-11] MEDS: ATORVASTATIN 20 MG TABLET PO SCH (21:15)
--- NOTE | 2019-09-11 21:35 | NUR ---
Received pt resting in bed and listening to her [employer] radio. AAO x3-4. No acute distress noted. Denies pain/ discomfort. Right upper arm picc line, patent and intact. Due meds given as ordered, tolerated well. Skin care rendered. Safety measures maintained. Call light and personal items within reach. Will continue to monitor.
[2019-09-12 06:00] VITALS: BP 136/60
[2019-09-12] MEDS: BLOOD SUGAR DIAGNOSTIC 1 EACH STRIP VI SCH ×3 (06:36→16:56)
--- NOTE | 2019-09-12 07:50 | NUR ---
patient noted resting in bed, assisted to wheelchair for breakfast by document control assistant, no complaints of pain,no signs of distress noted, call light in reach, bed locked and in lowest position, all needs met
[2019-09-12] MEDS: LINAGLIPTIN 5 MG TABLET PO SCH (08:52)
[2019-09-12] MEDS: glipiZIDE 5 MG TABLET PO SCH ×2 (08:52→16:52)
[2019-09-12] MEDS: CITALOPRAM 20 MG TABLET PO SCH (08:53)
[2019-09-12] MEDS: ASCORBIC ACID 500 MG TABLET PO SCH (08:53)
[2019-09-12] MEDS: ACIDOPHILUS/BULGARICUS CHEW TAB PO SCH (08:53)
[2019-09-12] MEDS: GABAPENTIN 100 MG CAPSULE PO SCH ×2 (08:53→16:52)
[2019-09-12] MEDS: BETA CAROTENE/VIT C & E/MIN TABLET PO SCH (08:53)
[2019-09-12] MEDS: PROTEIN SUPPLEMENT (PROSTAT) 30 ML LIQUID PO SCH ×2 (08:54→17:00)
[2019-09-12] MEDS: CLOTRIMAZOLE 1% CREAM 30 GM TUBE TOP SCH ×2 (08:54→17:00)
[2019-09-12] MEDS: AMLODIPINE 5 MG TABLET PO SCH (08:58)
[2019-09-12 16:36] VITALS: BP 119/44
--- NOTE | 2019-09-12 19:05 | NUR ---
Patient in bed, awake. Patient denies any acute distress or pain. Patient's L. leg dressing is clean, dry and no s/s of infection noted. Patient's vitals are stable. R. upper arm PICC line double lumen is intact and patent. Safety measures in place. Bed low and locked in position. Will continue with the plan of care.
[2019-09-12] MEDS: ATORVASTATIN 20 MG TABLET PO SCH (20:21)
[2019-09-12] MEDS: MELATONIN 3 MG TABLET PO SCH (20:21)
[2019-09-12] MEDS: CEFTRIAXONE 2 G in IV DEXTROSE 5% 100 ML IV SCH (20:21)
[2019-09-12 20:47] VITALS: BP 115/58
[2019-09-13 06:00] VITALS: BP_SYST 115; BP_SYST 140; BP_DIAS 62
[2019-09-13] MEDS: glipiZIDE 5 MG TABLET PO SCH ×2 (06:32→16:51)
[2019-09-13] MEDS: BLOOD SUGAR DIAGNOSTIC 1 EACH STRIP VI SCH ×3 (06:36→16:51)
--- NOTE | 2019-09-13 06:58 | NUR ---
Patient slept throughout the night. Patient is awake and denies any acute distress or pain at this time. R upper arm PICC is intact and patent. Prescribed medications were given, patient tolerated. Patients blood sugar is 81, offered some snacks otherwise patients vitals stable. Comfort care and needs attended. L. leg dressing is intact, dry and no sign of infection noted. Daily weights was not recorded d/t bed scale malfunction. Fall precaution maintained. Safety measures in place. Bed low and locked in position. Call light within reach. Will endorse to the oncoming nurse accordingly.
[2019-09-13] MEDS: AMLODIPINE 5 MG TABLET PO SCH (09:00)
[2019-09-13] MEDS: BETA CAROTENE/VIT C & E/MIN TABLET PO SCH (09:16)
[2019-09-13] MEDS: GABAPENTIN 100 MG CAPSULE PO SCH ×2 (09:16→16:52)
[2019-09-13] MEDS: ACIDOPHILUS/BULGARICUS CHEW TAB PO SCH (09:16)
[2019-09-13] MEDS: LINAGLIPTIN 5 MG TABLET PO SCH (09:16)
[2019-09-13] MEDS: ASCORBIC ACID 500 MG TABLET PO SCH (09:16)
[2019-09-13] MEDS: CITALOPRAM 20 MG TABLET PO SCH (09:16)
[2019-09-13] MEDS: PROTEIN SUPPLEMENT (PROSTAT) 30 ML LIQUID PO SCH ×2 (09:17→16:52)
[2019-09-13] MEDS: CLOTRIMAZOLE 1% CREAM 30 GM TUBE TOP SCH ×2 (09:18→16:52)
--- NOTE | 2019-09-13 14:00 | NUR ---
Received patient in bed, pt is AAO x 4, able to express needs. NO acute distress noted. Vital signs taken and stable. Leesa pain at this time. due medications administered as ordered and scheduled and tolerated well. Pt. on PT/OT therapy; cooperated with care. was up with therapy. also uses the walker for small steps. skin kept clean and dry, applied Lotrimin cream to affected area as needed. informed patient to call for help when needs to be changed. safety measures in place, needs attended, call light left at bed side and will continue with care.
[2019-09-13 16:28] VITALS: BP 129/50
--- NOTE | 2019-09-13 18:43 | NUR ---
Patient seen by MD in a process for possible discharge per patient request.
--- NOTE | 2019-09-13 18:56 | NUR ---
patient in stable condition, left leg wrapped with noah bandage, intact and dry and will continue with care.
[2019-09-13 20:00] VITALS: BP 133/52
--- NOTE | 2019-09-13 20:00 | NUR ---
Received patient awake and alert. Patient shows no signs or symptoms of distress at this time. Vital signs stable. PICC line dual lumen flushed and patent. Bed set to lowest position. Call light within reach. Side rails X2 are up. Will continue to monitor patient.
[2019-09-13] MEDS: CEFTRIAXONE 2 G in IV DEXTROSE 5% 100 ML IV SCH (20:43)
[2019-09-13] MEDS: ATORVASTATIN 20 MG TABLET PO SCH (21:34)
[2019-09-13] MEDS: MELATONIN 3 MG TABLET PO SCH (21:34)
--- NOTE | 2019-09-14 06:03 | NUR ---
Patient shows no signs or symptoms of distress at this time. Patient resting comfortably in bed. Will endorse patient to day shift nurse in stable condition.
[2019-09-14] MEDS: BLOOD SUGAR DIAGNOSTIC 1 EACH STRIP VI SCH ×3 (06:41→15:57)
[2019-09-14 07:00] LABS: CARBON DIOXIDE 29 mmol/L (21-32); CHLORIDE 108 mmol/L (98-107); GLUCOSE 90 mg/dL (74-106); POTASSIUM 4.6 mmol/L (3.5-5.1); UREA NITROGEN, BLOOD 49 mg/dL (7-18)
[2019-09-14] MEDS: glipiZIDE 5 MG TABLET PO SCH ×2 (07:48→15:57)
[2019-09-14 08:00] VITALS: BP 126/47
[2019-09-14] MEDS: ACIDOPHILUS/BULGARICUS CHEW TAB PO SCH (08:11)
[2019-09-14] MEDS: CITALOPRAM 20 MG TABLET PO SCH (08:11)
[2019-09-14] MEDS: ASCORBIC ACID 500 MG TABLET PO SCH (08:11)
[2019-09-14] MEDS: BETA CAROTENE/VIT C & E/MIN TABLET PO SCH (08:11)
[2019-09-14] MEDS: GABAPENTIN 100 MG CAPSULE PO SCH ×2 (08:11→16:00)
[2019-09-14] MEDS: AMLODIPINE 5 MG TABLET PO SCH (08:11)
[2019-09-14] MEDS: LINAGLIPTIN 5 MG TABLET PO SCH (08:11)
[2019-09-14] MEDS: CLOTRIMAZOLE 1% CREAM 30 GM TUBE TOP SCH ×2 (08:25→16:00)
[2019-09-14] MEDS: PROTEIN SUPPLEMENT (PROSTAT) 30 ML LIQUID PO SCH ×2 (08:26→16:00)
[2019-09-14 16:48] VITALS: BP 120/52
[2019-09-14 20:00] VITALS: BP 136/57
[2019-09-14] MEDS: CEFTRIAXONE 2 G in IV DEXTROSE 5% 100 ML IV SCH (20:28)
[2019-09-14] MEDS: MELATONIN 3 MG TABLET PO SCH (21:15)
[2019-09-14] MEDS: ATORVASTATIN 20 MG TABLET PO SCH (21:15)
--- NOTE | 2019-09-14 21:47 | NUR ---
Received pt resting in bed and watching tv. AAO x3-4. No acute distress noted. Denies pain/ discomfort. Right upper arm picc line, patent and intact. IV tubing changed. Due meds given as ordered, tolerated well. Skin care rendered. Safety measures maintained. Call light and personal items within reach. Will continue to monitor.
[2019-09-15 04:00] VITALS: BP 132/52
[2019-09-15 06:31] LABS: CARBON DIOXIDE 28 mmol/L (21-32); CHLORIDE 109 mmol/L (98-107); GLUCOSE 78 mg/dL (74-106); POTASSIUM 4.3 mmol/L (3.5-5.1); UREA NITROGEN, BLOOD 44 mg/dL (7-18)
[2019-09-15] MEDS: BLOOD SUGAR DIAGNOSTIC 1 EACH STRIP VI SCH ×3 (06:34→16:30)
[2019-09-15 07:30] VITALS: BP 122/43
[2019-09-15] MEDS: LINAGLIPTIN 5 MG TABLET PO SCH (09:02)
[2019-09-15] MEDS: GABAPENTIN 100 MG CAPSULE PO SCH ×2 (09:02→17:37)
[2019-09-15] MEDS: ASCORBIC ACID 500 MG TABLET PO SCH (09:02)
[2019-09-15] MEDS: CITALOPRAM 20 MG TABLET PO SCH (09:02)
[2019-09-15] MEDS: ACIDOPHILUS/BULGARICUS CHEW TAB PO SCH (09:02)
[2019-09-15] MEDS: BETA CAROTENE/VIT C & E/MIN TABLET PO SCH (09:02)
[2019-09-15] MEDS: AMLODIPINE 5 MG TABLET PO SCH (09:03)
[2019-09-15] MEDS: CLOTRIMAZOLE 1% CREAM 30 GM TUBE TOP SCH ×2 (09:03→17:43)
[2019-09-15] MEDS: PROTEIN SUPPLEMENT (PROSTAT) 30 ML LIQUID PO SCH ×2 (09:04→17:43)
[2019-09-15] MEDS: glipiZIDE 5 MG TABLET PO SCH ×2 (09:11→17:38)
[2019-09-15 16:00] VITALS: BP 133/51
--- NOTE | 2019-09-15 16:51 | NUR ---
patient is alert, oriented x4, able to communicate well, able to verbalize her needs, no sob, resp even nonlabored,skin warm and dry to touch, refused to get up to chair, refused PT,OT services, patient stated it her rest day today, she does not want to get up. patient refuses to change position, explained risks and benefits of skin issues, patient still refused, continue to monitor and convince the patient.
[2019-09-15 20:00] VITALS: BP 127/45
[2019-09-15] MEDS: CEFTRIAXONE 2 G in IV DEXTROSE 5% 100 ML IV SCH (21:07)
[2019-09-15] MEDS: MELATONIN 3 MG TABLET PO SCH (21:07)
[2019-09-15] MEDS: ATORVASTATIN 20 MG TABLET PO SCH (21:08)
--- NOTE | 2019-09-15 23:28 | NUR ---
aaox 3-4 Bedrest maintained. Left foot dressing clean dry and intact. Left with noah wrap dressing intact. VSS.Right PICC intact flushed and patent. On IV ABT given as scheduled, no ill effects noted. Fall precautions maintained. On pain management. Denies any pain at this time. Tolerated po meds well. Incontinent of bowel and bladder. Kept clean and dry. Needs attended. Will monitor patient.
[2019-09-16 04:00] VITALS: BP_SYST 133; BP_SYST 156; BP_DIAS 55; BP_DIAS 64
--- NOTE | 2019-09-16 06:39 | NUR ---
End of shift notes: Slept at long intervals. No acute distress noted. Rt PICC intact flushed and patent. Needs attended. Denies any pain nor any discomfort. Will monitor patient.
[2019-09-16] MEDS: ACIDOPHILUS/BULGARICUS CHEW TAB PO SCH (08:36)
[2019-09-16] MEDS: CITALOPRAM 20 MG TABLET PO SCH (08:36)
[2019-09-16] MEDS: GABAPENTIN 100 MG CAPSULE PO SCH ×2 (08:36→17:17)
[2019-09-16] MEDS: ASCORBIC ACID 500 MG TABLET PO SCH (08:36)
[2019-09-16] MEDS: AMLODIPINE 5 MG TABLET PO SCH (08:36)
[2019-09-16] MEDS: LINAGLIPTIN 5 MG TABLET PO SCH (08:36)
[2019-09-16] MEDS: BETA CAROTENE/VIT C & E/MIN TABLET PO SCH (08:36)
[2019-09-16] MEDS: PROTEIN SUPPLEMENT (PROSTAT) 30 ML LIQUID PO SCH ×2 (08:38→17:17)
[2019-09-16] MEDS: glipiZIDE 5 MG TABLET PO SCH ×2 (08:38→17:17)
[2019-09-16 08:39] VITALS: BP 138/54
[2019-09-16] MEDS: CLOTRIMAZOLE 1% CREAM 30 GM TUBE TOP SCH ×2 (08:46→17:18)
[2019-09-16 16:33] VITALS: BP 118/47
--- NOTE | 2019-09-16 18:27 | NUR ---
EOS note: No significant acute changes during this shift. Pt. A/Ox3-4, verbally responsive and able to make her needs known. All due medications given as ordered and tolerated well. Denies pain or discomfort. Pt. participated with PT/OT and tolerated tx well. PICC line dressing changed due to soiling. Wound care rendered to LT. greater toe per MD order. All pt. needs attended and met. Safety measures in place. Call light and all frequently used items within pt. reach. Will endorse to oncoming shift accordingly.
[2019-09-16 20:00] VITALS: BP 120/44
[2019-09-16] MEDS: MELATONIN 3 MG TABLET PO SCH (20:48)
[2019-09-16] MEDS: ATORVASTATIN 20 MG TABLET PO SCH (20:48)
[2019-09-16] MEDS: CEFTRIAXONE 2 G in IV DEXTROSE 5% 100 ML IV SCH (20:56)
--- NOTE | 2019-09-17 03:44 | NUR ---
Received patient in bed. AAO x3. No acute distress or SOB was noted. Farsi speaking, but can communicate in Tanzanian well. On room air. No Complain of pain. All due medication administered and well tolerated. IV antibiotic Rocephin 2 G administered. Double lumen PICC line patent, no sign f inflammation. Physical assessment done. Safety measures maintained, fall prevention observed. Skin care rendered. Bed in locked and low position, side rails up x2 for safety, bed alarm on. Call light and frequently using items within reach. Continue to monitor and will endorse to the oncoming nurse accordingly.
[2019-09-17 04:00] VITALS: BP 132/55
[2019-09-17] MEDS: glipiZIDE 5 MG TABLET PO SCH ×2 (06:35→16:40)
[2019-09-17] MEDS: ACIDOPHILUS/BULGARICUS CHEW TAB PO SCH (08:44)
[2019-09-17] MEDS: LINAGLIPTIN 5 MG TABLET PO SCH (08:44)
[2019-09-17] MEDS: ASCORBIC ACID 500 MG TABLET PO SCH (08:44)
[2019-09-17] MEDS: GABAPENTIN 100 MG CAPSULE PO SCH ×2 (08:44→16:40)
[2019-09-17] MEDS: CITALOPRAM 20 MG TABLET PO SCH (08:44)
[2019-09-17] MEDS: AMLODIPINE 5 MG TABLET PO SCH (08:44)
[2019-09-17] MEDS: BETA CAROTENE/VIT C & E/MIN TABLET PO SCH (08:44)
[2019-09-17] MEDS: PROTEIN SUPPLEMENT (PROSTAT) 30 ML LIQUID PO SCH ×2 (08:45→16:40)
[2019-09-17] MEDS: CLOTRIMAZOLE 1% CREAM 30 GM TUBE TOP SCH ×2 (08:45→16:40)
[2019-09-17 08:49] VITALS: BP 115/40
[2019-09-17 15:09] VITALS: BP 119/48
--- NOTE | 2019-09-17 18:28 | NUR ---
EOS note: No significant acute changes during this shift. Pt. A/Ox3-4, verbally responsive and able to make her needs known. All due medications given as ordered and tolerated well. Denies pain or discomfort. COVID-19 result received, pt neg. Notified son Jimmy. Per son, he would prefer at this point to take pt home with home health due to SNF ([facility]) closing for admission. MIO Farris aware, will discussed dispo plan with R/P tomorrow 09/18/19. Pt. participated with PT/OT and tolerated tx well. LLE dressing kept C/D/I. All pt. needs attended and met. Safety measures in place. Call light and all frequently used items within pt. reach. Will endorse to oncoming shift accordingly.
[2019-09-17 20:00] VITALS: BP 130/51
[2019-09-17] MEDS: CEFTRIAXONE 2 G in IV DEXTROSE 5% 100 ML IV SCH (20:07)
[2019-09-17] MEDS: ATORVASTATIN 20 MG TABLET PO SCH (20:44)
[2019-09-17] MEDS: MELATONIN 3 MG TABLET PO SCH (20:44)
--- NOTE | 2019-09-18 03:16 | NUR ---
Received patient in bed. AAO x3. No acute distress or SOB was noted. Farsi speaking, but can communicate in [place] Zeal[place] well. Able to make needs known. On room air. No Complain of pain. All due medication administered and well tolerated. IV antibiotic Rocephin 2 G administered. Double lumen PICC line patent, no sign of inflammation. Physical assessment done. Safety measures maintained, fall prevention observed. Skin care rendered. Bed in locked and low position, side rails up x2 for safety, bed alarm on. Call light and frequently using items within reach. Continue to monitor and will endorse to the oncoming nurse accordingly.
[2019-09-18] MEDS: glipiZIDE 5 MG TABLET PO SCH ×2 (06:37→16:25)
[2019-09-18 06:57] VITALS: BP 131/47
[2019-09-18 08:00] VITALS: BP 125/48
[2019-09-18] MEDS: ACIDOPHILUS/BULGARICUS CHEW TAB PO SCH (08:42)
[2019-09-18] MEDS: GABAPENTIN 100 MG CAPSULE PO SCH ×2 (08:42→16:24)
[2019-09-18] MEDS: LINAGLIPTIN 5 MG TABLET PO SCH (08:42)
[2019-09-18] MEDS: ASCORBIC ACID 500 MG TABLET PO SCH (08:43)
[2019-09-18] MEDS: BETA CAROTENE/VIT C & E/MIN TABLET PO SCH (08:43)
[2019-09-18] MEDS: PROTEIN SUPPLEMENT (PROSTAT) 30 ML LIQUID PO SCH ×2 (08:43→16:25)
[2019-09-18] MEDS: AMLODIPINE 5 MG TABLET PO SCH (08:43)
[2019-09-18] MEDS: CITALOPRAM 20 MG TABLET PO SCH (08:44)
[2019-09-18] MEDS: CLOTRIMAZOLE 1% CREAM 30 GM TUBE TOP SCH ×2 (08:44→16:25)
--- NOTE | 2019-09-18 12:51 | NUR ---
Spoke to son Carolina in detail, answered his questions regarding antibiotic therapy
[2019-09-18 16:00] VITALS: BP 130/52
[2019-09-18] MEDS: CEFTRIAXONE 2 G in IV DEXTROSE 5% 100 ML IV SCH (16:26)
--- NOTE | 2019-09-18 17:52 | NUR ---
patient is alert, oriented x4, verbally responsive, no sob, resp even nonlabored, skin warm and dry to touch, being discharged to [facility], report given to rashmi, instruction provided in packet and in report for follow up with surgeon for left big toe, wound care for left big toe, antibiotic therapy for total of six weeks, next dose due tomorrow, today's dose given early approved with pharmacy, and, MD. belongings accounted and signed, picc line is intact and Patent. patient refused to have pictures for her groin area with witness of another nurse on duty Name Quita, however no skin issues on back, no pressure sores, heels are intact, dry and clean, no skin issues at both heels. fungal rash to perineal area, back and groin area are resolving with Lotrimin cream. instruction given to patient as well, patient verbalized understanding of it.
--- NOTE | 2019-09-18 18:48 | NUR ---
PATIENT DISCHARGED TO [facility] WITH AMBULANCE. BELONGINGS AND ENVELOP FOR INSTRUCTIONS GIVEN TO AMBULANCE
== END 2019-09-18 18:45 | DRG 559 ==
PROVIDERS: ADMIT Physical Medicine & Rehabilitation Pain Medicine; ATTEND Physical Medicine & Rehabilitation Pain Medicine
DX: Z47.89 Encounter for other orthopedic aftercare (principal); N17.0 Acute kidney failure with tubular necrosis; M86.8X7 Other osteomyelitis, ankle and foot; D68.59 Other primary thrombophilia; L03.116 Cellulitis of left lower limb; N39.0 Urinary tract infection, site not specified; E11.69 Type 2 diabetes mellitus with other specified complication; D63.8 Anemia in other chronic diseases classified elsewhere; E11.22 Type 2 diabetes mellitus with diabetic chronic kidney disease; G20 Parkinson's disease; E78.5 Hyperlipidemia, unspecified; F02.80 Dementia in other diseases classified elsewhere, unspecified severity, without behavioral disturbance, psychotic disturbance, mood disturbance, and anxiety; N18.9 Chronic kidney disease, unspecified; I12.9 Hypertensive chronic kidney disease with stage 1 through stage 4 chronic kidney disease, or unspecified chronic kidney disease; M24.478 Recurrent dislocation, left toe(s); Z85.3 Personal history of malignant neoplasm of breast; Z90.13 Acquired absence of bilateral breasts and nipples; E11.42 Type 2 diabetes mellitus with diabetic polyneuropathy; E11.621 Type 2 diabetes mellitus with foot ulcer; E11.51 Type 2 diabetes mellitus with diabetic peripheral angiopathy without gangrene; F41.9 Anxiety disorder, unspecified; L97.529 Non-pressure chronic ulcer of other part of left foot with unspecified severity; Z68.34 Body mass index [BMI] 34.0-34.9, adult; E66.9 Obesity, unspecified; R29.6 Repeated falls; R26.9 Unspecified abnormalities of gait and mobility; Z88.8 Allergy status to other drugs, medicaments and biological substances; Z91.02 Food additives allergy status
CPT/HCPCS: 36415; 83735; 83970; 84100; 84155; 84156; 84165; 84300; 85025; 85651; 86038; 86160; 86706; 86803; 87086; 87340; J0696; J1815; J7040; J7050; J7060; U0003-CS

== ENCOUNTER 2024-04-21 15:53 | Inpatient (IN) | payer MEDICARE, OTHER ==
[~2024-04-21] VITALS: Ht 167.6 cm; Wt 94.1 kg
[~2024-04-21 15:53] MED LIST: ACET-2154 PO; ACID1TAB4 PO; AMLO-212 PO; ASCO-375 PO; BETA1TAB19 PO; BISA10SU61 RC; CEFT2VIA14 IV; CITA20TA16 PO; DEXT1DRO3 EACHEYE; EMPA25TA PO; GABA-532 PO; GLIP5TAB13 PO; LACT10SO3 PO; MELA3TAB52 PO; PROT30LI PO; SIMV-49 PO
[2024-04-21] MEDS: ONDANSETRON HCL 4 MG TABLET PO ONE (16:00)
[2024-04-21] MEDS: HYDROMORPHONE 1 MG/1 ML DISP.SYRIN IV ONE ×2 (16:00→20:00)
[2024-04-21 16:41] LABS: BASOPHILS % (AUTO) 0.2 % (0.0-2.0); EOSINOPHILS # (AUTO) 0.1 K/uL (0.0-0.7); EOSINOPHILS % (AUTO) 0.6 % (0.0-7.0); HEMATOCRIT 24.7 % (31.2-41.9); HEMOGLOBIN 7.9 g/dL (10.9-14.3); LYMPHOCYTES # (AUTO) 1.3 K/uL (0.8-4.8); LYMPHOCYTES % (AUTO) 9.7 % (20.5-51.5); MEAN CORPUSCULAR HEMOGLOBIN 27.8 uug (24.7-32.8); MEAN CORPUSCULAR HGB CONC 32 g/dL (32.3-35.6); MEAN CORPUSCULAR VOLUME 86.5 fL (75.5-95.3); MONOCYTES # (AUTO) 0.6 K/uL (0.1-1.30); MONOCYTES % (AUTO) 4.8 % (0.0-11.0); NEUTROPHILS # (AUTO) 11.2 K/uL (1.8-8.9); NEUTROPHILS % (AUTO) 84.7 % (38.5-71.5); PLATELET COUNT (AUTO) 360 K/uL (179-408); RED BLOOD CELL COUNT(AUTO) 2.85 MIL/uL (3.63-4.92); WHITE BLOOD COUNT (AUTO) 13.2 K/uL (3.8-11.8)
[2024-04-21 16:49] LABS: DIFFERENTIAL COMMENT 1
[2024-04-21 16:55] LABS: CALCIUM 8.6 mg/dL (8.5-10.1); CARBON DIOXIDE 21 mmol/L (21-32); CHLORIDE 102 mmol/L (98-107); CREATININE 3.1 mg/dL (0.6-1.3); GLUCOSE 313 mg/dL (74-106); SODIUM SERUM 138 mmol/L (136-145); UREA NITROGEN, BLOOD 76 mg/dL (7-18)
[2024-04-21 17:04] LABS: ALANINE AMINOTRANSFERASE 21 U/L (14-59); ALBUMIN 2.8 g/dL (3.4-5.0); ALKALINE PHOSPHATASE 105 U/L (50-136); ASPARTATE AMINOTRANSFERASE 17 U/L (15-37); BILIRUBIN,DIRECT < 0.1 mg/dL (0.0-0.2); BILIRUBIN,TOTAL 0.3 mg/dL (0.2-1.0); TOTAL PROTEIN, SERUM 7.8 g/dL (6.4-8.2)
[2024-04-21] MEDS ORDERED: HYDROMORPHONE 1 MG/1 ML DISP.SYRIN ONE ×2 (17:06→21:00)
[2024-04-21] MEDS ORDERED: ONDANSETRON HCL 4 MG TABLET ONE (17:06)
[2024-04-21] MEDS: IV NS 1000 ML 1,000 ML IV ONE (17:44)
[2024-04-21] MEDS ORDERED: DEXTROSE 50% 50 ML DISP.SYRIN IV PRN (21:30)
[2024-04-21] MEDS ORDERED: ACETAMINOPHEN 650 MG SUPP.RECT RC PRN (21:30)
[2024-04-21] MEDS ORDERED: INSULIN REGULAR, HUMAN 1000 UNIT/10 ML VIAL SQ PRN (21:30)
[2024-04-21] MEDS ORDERED: ONDANSETRON 4 MG/2 ML VIAL IV PRN (21:30)
[2024-04-21] MEDS ORDERED: BISACODYL 10 MG SUPP.RECT RC PRN (21:30)
[2024-04-22] VITALS (9 sets, daily range): BP systolic 111–185; BP diastolic 36–58; TEMP 97.9–98.9; O2SAT 95–97
[2024-04-22 01:03] LABS: *BILIRUBIN,URIN NEGATIVE (NEGATIVE); *BLOOD, URINE 1+ (NEGATIVE); *CLARITY,URINE CLOUDY (CLEAR); *COLOR,URINE YELLOW (YELLOW); *KETONES,URINE NEGATIVE (NEGATIVE); *PROTEIN,URINE 2+ (NEGATIVE); *UROBILINOGEN,URINE 0.2 E.U./dl (NORMAL); LEUKOCYTE ESTERASE ,URINE 1+ (NEGATIVE); NITRITE, URINE POSITIVE (NEGATIVE)
[2024-04-22 01:14] LABS: UGLUCOSE 2+ (NEGATIVE)
[2024-04-22 01:20] LABS: BACTERIA,URINE MANY /HPF (NONE SEEN); RBC,URINE 20-50 /HPF (0-3); SQUAMOUS EPITHELIAL CELL,UR MODERATE /HPF (NONE SEEN); WBC,URINE 20-50 /HPF (0-3)
[2024-04-22] MEDS: HYDROMORPHONE 1 MG/1 ML DISP.SYRIN IV PRN ×2 (01:36→21:53)
[2024-04-22] MEDS: IV D5 1/2 NS 1000 ML 1,000 ML IV PRN (01:37)
[2024-04-22] MEDS: BLOOD SUGAR DIAGNOSTIC 1 EACH STRIP VI SCH (01:51)
[2024-04-22] MEDS: ENALAPRILAT DIHYDRATE 1.25 MG/1 ML VIAL IV PRN (04:37)
[2024-04-22] MEDS: PANTOPRAZOLE SODIUM 40 MG VIAL IV SCH (08:30)
[2024-04-22 08:49] LABS: BASOPHILS # (AUTO) 0.1 K/UL (0.0-0.2); DIFFERENTIAL COMMENT 0; EOSINOPHILS % (AUTO) 0.1 % (0.0-7.0); HEMATOCRIT 21.9 % (31.2-41.9); LYMPHOCYTES # (AUTO) 1.3 K/uL (0.8-4.8); MEAN CORPUSCULAR HGB CONC 32 g/dL (32.3-35.6); MEAN CORPUSCULAR VOLUME 86.6 fL (75.5-95.3); MONOCYTES # (AUTO) 0.8 K/uL (0.1-1.30); MONOCYTES % (AUTO) 6.1 % (0.0-11.0); NEUTROPHILS # (AUTO) 10.5 K/uL (1.8-8.9); NEUTROPHILS % (AUTO) 82.8 % (38.5-71.5); PLATELET COUNT (AUTO) 317 K/uL (179-408); RED BLOOD CELL COUNT(AUTO) 2.53 MIL/uL (3.63-4.92); RED CELL DISTRIBUTION WIDTH 15.3 % (12.3-17.7); WHITE BLOOD COUNT (AUTO) 12.7 K/uL (3.8-11.8)
[2024-04-22 08:59] LABS: HEMOGLOBIN 7.1 g/dL (10.9-14.3)
[2024-04-22 09:08] LABS: ALANINE AMINOTRANSFERASE 20 U/L (14-59); ALBUMIN 2.5 g/dL (3.4-5.0); ALKALINE PHOSPHATASE 94 U/L (50-136); ASPARTATE AMINOTRANSFERASE 18 U/L (15-37); BILIRUBIN,TOTAL 0.3 mg/dL (0.2-1.0); CALCIUM 8.6 mg/dL (8.5-10.1); CARBON DIOXIDE 20 mmol/L (21-32); CHLORIDE 103 mmol/L (98-107); CHOLESTEROL 122 mg/dL (<200); GLUCOSE 390 mg/dL (74-106); HDL CHOLESTEROL 54 mg/dL (40-60); MAGNESIUM 1.6 mg/dL (1.8-2.4); PHOSPHOROUS 4.6 mg/dL (2.5-4.9); POTASSIUM 4.8 mmol/L (3.5-5.1); SODIUM SERUM 136 mmol/L (136-145); TOTAL PROTEIN, SERUM 7.5 g/dL (6.4-8.2); TRIGLYCERIDES 78 MG/DL (30-150); UREA NITROGEN, BLOOD 72 mg/dL (7-18)
[2024-04-22 09:13] LABS: IRON, SERUM 14 ug/dL (50-175)
[2024-04-22 10:15] LABS: THYROID STIMULATING HORMONE 2.354 mIU/mL (0.358-3.740)
[2024-04-22 12:57] LABS: HEMATOCRIT 22.5 % (31.2-41.9)
[2024-04-22 12:58] LABS: HEMOGLOBIN 7.2 g/dL (10.9-14.3)
[2024-04-22] MEDS ORDERED: SOD FERRIC GLUC COMPLX/SUCROSE 125 MG in IV NORMAL SALINE 100 ML IV SCH (14:00)
[2024-04-22] MEDS: SOD FERRIC GLUC COMPLX/SUCROSE 125 MG in IV NORMAL SALINE 100 ML IV SCH (14:14)
[2024-04-22] MEDS: CEFTRIAXONE 1 G in IV DEXTROSE 5% 50 ML IV SCH (15:59)
[2024-04-22] MEDS: ZOLPIDEM 5 MG TABLET PO PRN (22:49)
[2024-04-23] VITALS (9 sets, daily range): BP systolic 124–162; BP diastolic 33–69; TEMP 97.6–98.5; O2SAT 93–100
[2024-04-23] MEDS: IV 1/2NS 1000 ML 1,000 ML IV PRN (00:44)
[2024-04-23] MEDS ORDERED: BISACODYL 10 MG SUPP.RECT RC PRN (05:00)
[2024-04-23 06:45] LABS: BASOPHILS # (AUTO) 0.1 K/UL (0.0-0.2); BASOPHILS % (AUTO) 0.5 % (0.0-2.0); EOSINOPHILS # (AUTO) 0.1 K/uL (0.0-0.7); EOSINOPHILS % (AUTO) 0.5 % (0.0-7.0); HEMATOCRIT 24.9 % (31.2-41.9); HEMOGLOBIN 8.1 g/dL (10.9-14.3); LYMPHOCYTES % (AUTO) 8.9 % (20.5-51.5); MEAN CORPUSCULAR HEMOGLOBIN 28.2 uug (24.7-32.8); MEAN CORPUSCULAR HGB CONC 33 g/dL (32.3-35.6); MEAN CORPUSCULAR VOLUME 86.6 fL (75.5-95.3); MONOCYTES # (AUTO) 0.9 K/uL (0.1-1.30); MONOCYTES % (AUTO) 7.7 % (0.0-11.0); NEUTROPHILS # (AUTO) 9.7 K/uL (1.8-8.9); NEUTROPHILS % (AUTO) 82.4 % (38.5-71.5); PLATELET COUNT (AUTO) 279 K/uL (179-408); RED BLOOD CELL COUNT(AUTO) 2.88 MIL/uL (3.63-4.92); WHITE BLOOD COUNT (AUTO) 11.8 K/uL (3.8-11.8)
[2024-04-23 06:53] LABS: CALCIUM 8.4 mg/dL (8.5-10.1); CARBON DIOXIDE 22 mmol/L (21-32); CHLORIDE 104 mmol/L (98-107); CREATININE 3.1 mg/dL (0.6-1.3); GLUCOSE 315 mg/dL (74-106); POTASSIUM 4.8 mmol/L (3.5-5.1); SODIUM SERUM 137 mmol/L (136-145); UREA NITROGEN, BLOOD 63 mg/dL (7-18)
[2024-04-23 07:08] LABS: DIFFERENTIAL COMMENT 1
[2024-04-23] MEDS ORDERED: MIDAZOLAM HCL 2 MG/2 ML VIAL ONE (07:35)
[2024-04-23] MEDS ORDERED: FENTANYL CITRATE 100 MCG/2 ML AMPUL ONE (07:35)
[2024-04-23] MEDS ORDERED: VASOPRESSIN 20 UNIT/ML VIAL ONE (07:35)
[2024-04-23] MEDS ORDERED: VANCOMYCIN 1000 MG VIAL ONE (08:53)
[2024-04-23] MEDS ORDERED: EMPAGLIFLOZIN 25 MG TABLET PO SCH ×2 (09:00)
[2024-04-23] MEDS ORDERED: HYDROMORPHONE 1 MG/1 ML DISP.SYRIN ONE (09:46)
[2024-04-23] MEDS: HYDROMORPHONE 1 MG/1 ML DISP.SYRIN IVP PRN (09:55)
[2024-04-23] MEDS ORDERED: IV D5W-0.45% NS +20 KCL 1,000 ML IV ONE (10:04)
[2024-04-23] MEDS: IV D5W-0.45% NS +20 KCL 1,000 ML IV PRN (10:06)
[2024-04-23] MEDS: MORPHINE SULFATE 2 MG/1 ML DISP.SYRIN IV PRN (12:05)
[2024-04-23] MEDS: glipiZIDE 5 MG TABLET PO SCH (12:05)
[2024-04-23] MEDS: MEDIHONEY= THERAHONEY 1.5 OZ TUBE TOP SCH (12:13)
[2024-04-23] MEDS: HYDROCODONE/APAP 10-325 MG TABLET PO PRN (14:41)
[2024-04-23] MEDS: CEFTRIAXONE 2 G in IV DEXTROSE 5% 100 ML IV SCH (14:44)
[2024-04-23] MEDS: IV 1/2NS 1000 ML 1,000 ML IV ONE (18:51)
[2024-04-24] VITALS (14 sets, daily range): BP systolic 127–164; BP diastolic 32–63; TEMP 97.6–99.3; O2SAT 95–98
[2024-04-24 07:15] LABS: BASOPHILS % (AUTO) 0.5 % (0.0-2.0); DIFFERENTIAL COMMENT 0; EOSINOPHILS # (AUTO) 0.2 K/uL (0.0-0.7); EOSINOPHILS % (AUTO) 1.7 % (0.0-7.0); LYMPHOCYTES # (AUTO) 1.1 K/uL (0.8-4.8); LYMPHOCYTES % (AUTO) 11.3 % (20.5-51.5); MEAN CORPUSCULAR HEMOGLOBIN 28.5 uug (24.7-32.8); MEAN CORPUSCULAR HGB CONC 33 g/dL (32.3-35.6); MEAN CORPUSCULAR VOLUME 87.4 fL (75.5-95.3); MONOCYTES # (AUTO) 0.9 K/uL (0.1-1.30); MONOCYTES % (AUTO) 9.2 % (0.0-11.0); NEUTROPHILS # (AUTO) 7.4 K/uL (1.8-8.9); NEUTROPHILS % (AUTO) 77.3 % (38.5-71.5); PLATELET COUNT (AUTO) 226 K/uL (179-408); RED CELL DISTRIBUTION WIDTH 14.9 % (12.3-17.7); WHITE BLOOD COUNT (AUTO) 9.6 K/uL (3.8-11.8)
[2024-04-24 07:42] LABS: CALCIUM 8.2 mg/dL (8.5-10.1); CARBON DIOXIDE 21 mmol/L (21-32); CHLORIDE 104 mmol/L (98-107); CREATININE 3.4 mg/dL (0.6-1.3); GLUCOSE 284 mg/dL (74-106); POTASSIUM 4.6 mmol/L (3.5-5.1); SODIUM SERUM 136 mmol/L (136-145); UREA NITROGEN, BLOOD 65 mg/dL (7-18)
[2024-04-24 08:05] LABS: HEMATOCRIT 20.1 % (31.2-41.9); HEMOGLOBIN 6.5 g/dL (10.9-14.3)
[2024-04-24] MEDS ORDERED: ATOR40TA PO (14:26)
[2024-04-24] MEDS ORDERED: DOCU100T2 PO (14:26)
[2024-04-24] MEDS ORDERED: MELA10TA2 PO (14:26)
[2024-04-24] MEDS ORDERED: LINA5TAB PO (14:28)
[2024-04-24] MEDS ORDERED: CHOL100045 PO (14:30)
[2024-04-24 14:41] LABS: BAND % (MANUAL) 5 % (0-10); EOSINOPHILS % (MANUAL) 2 % (0-8); LYMPHOCYTES % (MANUAL) 10 % (20-40); MONOCYTES % (MANUAL) 8 % (2-10); NEUTROPHILS % (MANUAL) 75 % (42-75)
[2024-04-24 14:42] LABS: ANISOCYTOSIS 1+; PLATELET ESTIMATE ADEQUATE
[2024-04-24] MEDS: LINAGLIPTIN 5 MG TABLET PO SCH (15:23)
[2024-04-25 06:00] VITALS: BP 131/40; TEMP 98; O2SAT 99
[2024-04-25] MEDS: PANTOPRAZOLE SODIUM 40 MG TABLET.DR PO SCH (06:14)
[2024-04-25 06:36] LABS: BASOPHILS % (AUTO) 0.4 % (0.0-2.0); EOSINOPHILS # (AUTO) 0.2 K/uL (0.0-0.7); EOSINOPHILS % (AUTO) 1.9 % (0.0-7.0); HEMATOCRIT 23.7 % (31.2-41.9); HEMOGLOBIN 7.7 g/dL (10.9-14.3); LYMPHOCYTES % (AUTO) 8.9 % (20.5-51.5); MEAN CORPUSCULAR HEMOGLOBIN 28.7 uug (24.7-32.8); MEAN CORPUSCULAR HGB CONC 33 g/dL (32.3-35.6); MONOCYTES # (AUTO) 0.9 K/uL (0.1-1.30); MONOCYTES % (AUTO) 8.5 % (0.0-11.0); NEUTROPHILS # (AUTO) 8.9 K/uL (1.8-8.9); NEUTROPHILS % (AUTO) 80.3 % (38.5-71.5); PLATELET COUNT (AUTO) 215 K/uL (179-408); RED CELL DISTRIBUTION WIDTH 15.3 % (12.3-17.7); WHITE BLOOD COUNT (AUTO) 11.2 K/uL (3.8-11.8)
[2024-04-25 06:54] LABS: CALCIUM 8.3 mg/dL (8.5-10.1); CARBON DIOXIDE 21 mmol/L (21-32); CHLORIDE 105 mmol/L (98-107); CREATININE 3.5 mg/dL (0.6-1.3); DIFFERENTIAL COMMENT 1; GLUCOSE 157 mg/dL (74-106); POTASSIUM 4.6 mmol/L (3.5-5.1); SODIUM SERUM 137 mmol/L (136-145); UREA NITROGEN, BLOOD 65 mg/dL (7-18)
[2024-04-25 07:32] VITALS: BP 148/37; TEMP 98.4; O2SAT 99
[2024-04-25] MEDS: NEPRO (VANILLA) 237 ML CAN PO SCH (09:11)
[2024-04-25 10:47] VITALS: O2SAT 99
[2024-04-25 11:33] VITALS: BP 142/46; TEMP 98.9; O2SAT 98
[2024-04-25 16:00] VITALS: BP 155/36; TEMP 98.8; O2SAT 99
[2024-04-25] MEDS: CLOTRIMAZOLE 1% CREAM 30 GM TUBE TOP SCH (17:00)
[2024-04-25 19:00] VITALS: BP 130/49; TEMP 99.8; O2SAT 95
[2024-04-26] VITALS (9 sets, daily range): BP systolic 147–175; BP diastolic 34–68; TEMP 97.9–98.7; O2SAT 95–100
[2024-04-26 07:15] LABS: BASOPHILS % (AUTO) 0.5 % (0.0-2.0); EOSINOPHILS # (AUTO) 0.2 K/uL (0.0-0.7); EOSINOPHILS % (AUTO) 1.8 % (0.0-7.0); HEMATOCRIT 23.7 % (31.2-41.9); HEMOGLOBIN 7.8 g/dL (10.9-14.3); LYMPHOCYTES # (AUTO) 0.6 K/uL (0.8-4.8); LYMPHOCYTES % (AUTO) 6.8 % (20.5-51.5); MEAN CORPUSCULAR HEMOGLOBIN 29.3 uug (24.7-32.8); MEAN CORPUSCULAR HGB CONC 33 g/dL (32.3-35.6); MONOCYTES # (AUTO) 0.8 K/uL (0.1-1.30); MONOCYTES % (AUTO) 8.7 % (0.0-11.0); NEUTROPHILS # (AUTO) 7.4 K/uL (1.8-8.9); NEUTROPHILS % (AUTO) 82.2 % (38.5-71.5); PLATELET COUNT (AUTO) 213 K/uL (179-408); RED BLOOD CELL COUNT(AUTO) 2.66 MIL/uL (3.63-4.92); RED CELL DISTRIBUTION WIDTH 15.1 % (12.3-17.7); WHITE BLOOD COUNT (AUTO) 9.1 K/uL (3.8-11.8)
[2024-04-26 07:25] LABS: DIFFERENTIAL COMMENT 1
[2024-04-26 07:28] LABS: CALCIUM 8.2 mg/dL (8.5-10.1); CARBON DIOXIDE 23 mmol/L (21-32); CHLORIDE 105 mmol/L (98-107); CREATININE 3.5 mg/dL (0.6-1.3); GLUCOSE 246 mg/dL (74-106); POTASSIUM 4.3 mmol/L (3.5-5.1); SODIUM SERUM 138 mmol/L (136-145); UREA NITROGEN, BLOOD 70 mg/dL (7-18)
[2024-04-26] MEDS: MIRALAX 17 GM POWD.PACK PO SCH (16:31)
[2024-04-26] MEDS: DOCUSATE SODIUM 100 MG CAPSULE PO SCH (16:31)
[2024-04-26] MEDS: BACLOFEN 10 MG TABLET PO SCH (21:51)
[2024-04-27 06:00] VITALS: BP 155/59; TEMP 98.2; O2SAT 96
[2024-04-27 06:57] LABS: BASOPHILS % (AUTO) 0.4 % (0.0-2.0); EOSINOPHILS # (AUTO) 0.2 K/uL (0.0-0.7); EOSINOPHILS % (AUTO) 1.6 % (0.0-7.0); HEMATOCRIT 24.8 % (31.2-41.9); HEMOGLOBIN 8.1 g/dL (10.9-14.3); LYMPHOCYTES # (AUTO) 0.7 K/uL (0.8-4.8); LYMPHOCYTES % (AUTO) 6.7 % (20.5-51.5); MEAN CORPUSCULAR HEMOGLOBIN 29.5 uug (24.7-32.8); MEAN CORPUSCULAR HGB CONC 33 g/dL (32.3-35.6); MEAN CORPUSCULAR VOLUME 89.6 fL (75.5-95.3); MONOCYTES # (AUTO) 0.8 K/uL (0.1-1.30); MONOCYTES % (AUTO) 7.6 % (0.0-11.0); NEUTROPHILS # (AUTO) 8.6 K/uL (1.8-8.9); NEUTROPHILS % (AUTO) 83.7 % (38.5-71.5); PLATELET COUNT (AUTO) 245 K/uL (179-408); RED BLOOD CELL COUNT(AUTO) 2.76 MIL/uL (3.63-4.92); RED CELL DISTRIBUTION WIDTH 15.3 % (12.3-17.7); WHITE BLOOD COUNT (AUTO) 10.3 K/uL (3.8-11.8)
[2024-04-27 07:07] LABS: CALCIUM 8.6 mg/dL (8.5-10.1); CARBON DIOXIDE 20 mmol/L (21-32); CHLORIDE 106 mmol/L (98-107); CREATININE 3.5 mg/dL (0.6-1.3); GLUCOSE 262 mg/dL (74-106); SODIUM SERUM 139 mmol/L (136-145); UREA NITROGEN, BLOOD 76 mg/dL (7-18)
[2024-04-27 07:10] LABS: DIFFERENTIAL COMMENT 1
[2024-04-27] MEDS: LIDOCAINE 5% PATCH TD SCH (08:54)
[2024-04-27] MEDS ORDERED: PANT40TA49 PO (10:48)
[2024-04-27] MEDS ORDERED: HYDR-3980 PO (10:48)
[2024-04-27] MEDS ORDERED: CLOT30CR24 TOP (10:48)
[2024-04-27] MEDS ORDERED: NUT.237L67 PO (10:48)
[2024-04-27] MEDS ORDERED: BACL10TA PO (10:48)
[2024-04-27] MEDS ORDERED: ZOLP5TAB2 PO (10:48)
[2024-04-27] MEDS ORDERED: BISA10SU12 RC (10:48)
[2024-04-27] MEDS ORDERED: POLY17PO4 PO (10:48)
[2024-04-27] MEDS ORDERED: LIDO30AD10 TD (10:48)
[2024-04-27] MEDS ORDERED: DOCU-141 PO (10:48)
[2024-04-27] MEDS ORDERED: Morphine Sulfate Inj IV (10:48)
[2024-04-27] MEDS ORDERED: LINA5TAB PO (10:48)
[2024-04-27] MEDS ORDERED: CEFT1FRO2 IV (10:48)
[2024-04-27] MEDS ORDERED: ACET650S13 RC (10:48)
[2024-04-27 11:34] VITALS: BP 127/43; TEMP 98.3; O2SAT 99
[2024-04-28] MEDS ORDERED: CALCIUM CARBONATE 500 MG TABLET PO SCH (09:00)
== END 2024-04-27 15:09 | DRG 480 ==
LOC: ER 15:53 → MEDSURG3 22:14 → TELE3 23:00 → MEDSURG3 04-26 11:10
PROVIDERS: ADMIT Internal Medicine; ATTEND Nurse Practitioner Acute Care
PROC: 05HD33Z Insertion of Infusion Device into Right Cephalic Vein, Percutaneous Approach (ICD-10-PCS; 2024-04-22)
PROC: 30233N1 Transfusion of Nonautologous Red Blood Cells into Peripheral Vein, Percutaneous Approach (ICD-10-PCS; 2024-04-22)
PROC: 0QS706Z Reposition Left Upper Femur with Intramedullary Internal Fixation Device, Open Approach (ICD-10-PCS; principal; 2024-04-23)
DX: S72.142A Displaced intertrochanteric fracture of left femur, initial encounter for closed fracture (principal); N17.0 Acute kidney failure with tubular necrosis; S42.292A Other displaced fracture of upper end of left humerus, initial encounter for closed fracture; N39.0 Urinary tract infection, site not specified; W18.09XA Striking against other object with subsequent fall, initial encounter; Y92.89 Other specified places as the place of occurrence of the external cause; E11.22 Type 2 diabetes mellitus with diabetic chronic kidney disease; N18.9 Chronic kidney disease, unspecified; I08.0 Rheumatic disorders of both mitral and aortic valves; E66.9 Obesity, unspecified; I12.9 Hypertensive chronic kidney disease with stage 1 through stage 4 chronic kidney disease, or unspecified chronic kidney disease; E78.5 Hyperlipidemia, unspecified; D63.1 Anemia in chronic kidney disease; B35.3 Tinea pedis; B35.1 Tinea unguium; Z68.37 Body mass index [BMI] 37.0-37.9, adult; Z79.84 Long term (current) use of oral hypoglycemic drugs; Z79.899 Other long term (current) drug therapy; Z85.3 Personal history of malignant neoplasm of breast; Z88.8 Allergy status to other drugs, medicaments and biological substances; Z91.014 Allergy to mammalian meats; Z90.13 Acquired absence of bilateral breasts and nipples; Z71.3 Dietary counseling and surveillance; L24.89 Irritant contact dermatitis due to other agents; S31.000A Unspecified open wound of lower back and pelvis without penetration into retroperitoneum, initial encounter; X58.XXXA Exposure to other specified factors, initial encounter; D72.829 Elevated white blood cell count, unspecified
CPT/HCPCS: 36415; 70030-TC; 71045; 72170; 73030; 73502; 73503; 83550; 83735; 84100; 84443; 84484; 85018; 85025; 85730; 86850; 86900; 86901; 86920; 93307; A4606; A4649; A4663; A6209; A6213; C1713; G0378; J0696; J1171; J2250; J2270; J2470; J2916; J3010; J3370; J3490; P9016; Q0162

== ENCOUNTER 2024-04-27 15:38 | Inpatient (IN) | payer MEDICARE, OTHER ==
[~2024-04-27] VITALS: Ht 157.5 cm; Wt 83.9 kg
[~2024-04-27 15:38] MED LIST changes: -ACET-2154 PO; +ACET650S13 RC; -AMLO-212 PO; +ATOR40TA PO; +BACL10TA PO; +BISA10SU12 RC; -BISA10SU61 RC; +CEFT1FRO2 IV; -CEFT2VIA14 IV; +CHOL100045 PO; +CLOT30CR24 TOP; -DEXT1DRO3 EACHEYE; +DOCU-141 PO; +DOCU100T2 PO; -EMPA25TA PO; -GABA-532 PO; +HYDR-3980 PO; -LACT10SO3 PO; +LIDO30AD10 TD; +LINA5TAB PO; +MELA10TA2 PO; -MELA3TAB52 PO; +Morphine Sulfate Inj IV; +NUT.237L67 PO; +PANT40TA49 PO; +POLY17PO4 PO; -PROT30LI PO; -SIMV-49 PO; +ZOLP5TAB2 PO
[2024-04-27 16:09] VITALS: BP 146/36; TEMP 97.2; O2SAT 93
[2024-04-27] MEDS ORDERED: ACETAMINOPHEN 650 MG SUPP.RECT RC PRN (16:15)
[2024-04-27] MEDS ORDERED: Medication Not On Formulary EA (Docusate Sodium 200 MG) PO SCH (16:15)
[2024-04-27] MEDS ORDERED: ZOLPIDEM 5 MG TABLET PO PRN (16:15)
[2024-04-27] MEDS: glipiZIDE 5 MG TABLET PO SCH (18:32)
[2024-04-27] MEDS: BISACODYL 5 MG TABLET.DR PO ONE (18:32)
[2024-04-27] MEDS: MELATONIN 3 MG TABLET PO SCH (21:00)
[2024-04-27] MEDS: DOCUSATE SODIUM 100 MG CAPSULE PO SCH (21:00)
[2024-04-27] MEDS: ATORVASTATIN 40 MG TABLET PO SCH (21:00)
[2024-04-27] MEDS: APIXABAN 2.5 MG TABLET PO SCH (21:00)
[2024-04-27] MEDS ORDERED: Medication Not On Formulary EA (Melatonin 10 MG) PO SCH (21:00)
[2024-04-27] MEDS: BACLOFEN 10 MG TABLET PO SCH (21:00)
[2024-04-27] MEDS: CLOTRIMAZOLE 1% CREAM 30 GM TUBE TOP SCH (21:00)
[2024-04-27] MEDS: IV D5 1/2 NS 1000 ML 1,000 ML IV PRN (22:02)
[2024-04-28 01:42] VITALS: O2SAT 93
[2024-04-28] MEDS: ONDANSETRON 4 MG/2 ML VIAL IV PRN (02:50)
[2024-04-28] MEDS ORDERED: ONDANSETRON 4 MG/2 ML VIAL IV PRN (05:30)
[2024-04-28] MEDS: PANTOPRAZOLE SODIUM 40 MG TABLET.DR PO SCH (06:43)
[2024-04-28 08:40] VITALS: O2SAT 94
[2024-04-28] MEDS: NEPRO (VANILLA) 237 ML CAN PO SCH (09:00)
[2024-04-28] MEDS: CHOLECALCIFEROL 1,000 UNIT TABLET PO SCH (09:00)
[2024-04-28] MEDS: LINAGLIPTIN 5 MG TABLET PO SCH (09:00)
[2024-04-28] MEDS: MIRALAX 17 GM POWD.PACK PO SCH (09:00)
[2024-04-28] MEDS ORDERED: CITALOPRAM 20 MG TABLET PO SCH ×2 (09:00)
[2024-04-28] MEDS: ASCORBIC ACID 500 MG TABLET PO SCH (09:00)
[2024-04-28] MEDS: CALCIUM CARBONATE 500 MG TABLET PO SCH (09:00)
[2024-04-28] MEDS: BETA CAROTENE/VIT C & E/MIN TABLET PO SCH (09:00)
[2024-04-28] MEDS: LIDOCAINE 5% PATCH TD SCH (09:00)
[2024-04-28] MEDS: ACIDOPHILUS/BULGARICUS CHEW TAB PO SCH (09:00)
[2024-04-28] MEDS ORDERED: ALBUTEROL SULFATE 2.5 MG/3 ML NEBU NEB PRN (10:15)
[2024-04-28 12:22] VITALS: TEMP 97.4; O2SAT 98
[2024-04-28] MEDS: BISACODYL 10 MG SUPP.RECT RC PRN (13:12)
[2024-04-28 13:39] LABS: BASOPHILS # (AUTO) 0.1 K/UL (0.0-0.2); BASOPHILS % (AUTO) 0.5 % (0.0-2.0); EOSINOPHILS # (AUTO) 0.1 K/uL (0.0-0.7); EOSINOPHILS % (AUTO) 0.6 % (0.0-7.0); HEMATOCRIT 26.4 % (31.2-41.9); HEMOGLOBIN 8.7 g/dL (10.9-14.3); LYMPHOCYTES # (AUTO) 0.8 K/uL (0.8-4.8); LYMPHOCYTES % (AUTO) 6.7 % (20.5-51.5); MEAN CORPUSCULAR HGB CONC 33 g/dL (32.3-35.6); MEAN CORPUSCULAR VOLUME 87.8 fL (75.5-95.3); MONOCYTES # (AUTO) 0.8 K/uL (0.1-1.30); MONOCYTES % (AUTO) 6.7 % (0.0-11.0); NEUTROPHILS # (AUTO) 9.7 K/uL (1.8-8.9); NEUTROPHILS % (AUTO) 85.5 % (38.5-71.5); PLATELET COUNT (AUTO) 315 K/uL (179-408); RED CELL DISTRIBUTION WIDTH 15.5 % (12.3-17.7); WHITE BLOOD COUNT (AUTO) 11.3 K/uL (3.8-11.8)
[2024-04-28 13:41] LABS: DIFFERENTIAL COMMENT 1
[2024-04-28 14:00] VITALS: BP 136/61; O2SAT 96
[2024-04-28] MEDS ORDERED: SOD FERRIC GLUC COMPLX/SUCROSE 125 MG in IV NORMAL SALINE 100 ML IV SCH (14:00)
[2024-04-28 14:03] LABS: CALCIUM 8.7 mg/dL (8.5-10.1); CARBON DIOXIDE 20 mmol/L (21-32); CHLORIDE 105 mmol/L (98-107); CREATININE 3.8 mg/dL (0.6-1.3); GLUCOSE 323 mg/dL (74-106); SODIUM SERUM 139 mmol/L (136-145)
[2024-04-28 14:26] LABS: UREA NITROGEN, BLOOD 82 mg/dL (7-18)
[2024-04-28] MEDS: MORPHINE SULFATE 2 MG/1 ML DISP.SYRIN IV PRN (14:52)
[2024-04-28] MEDS: CEFTRIAXONE 1 G in IV DEXTROSE 5% 50 ML IV SCH (15:09)
[2024-04-28] MEDS: SOD FERRIC GLUC COMPLX/SUCROSE 125 MG in IV NORMAL SALINE 100 ML IV SCH (18:44)
[2024-04-29 07:26] LABS: BASOPHILS # (AUTO) 0.1 K/UL (0.0-0.2); BASOPHILS % (AUTO) 0.8 % (0.0-2.0); EOSINOPHILS # (AUTO) 0.3 K/uL (0.0-0.7); EOSINOPHILS % (AUTO) 2.5 % (0.0-7.0); HEMATOCRIT 24.9 % (31.2-41.9); HEMOGLOBIN 8.1 g/dL (10.9-14.3); LYMPHOCYTES # (AUTO) 1.6 K/uL (0.8-4.8); MEAN CORPUSCULAR HEMOGLOBIN 29.6 uug (24.7-32.8); MEAN CORPUSCULAR HGB CONC 33 g/dL (32.3-35.6); MEAN CORPUSCULAR VOLUME 90.6 fL (75.5-95.3); MONOCYTES # (AUTO) 0.9 K/uL (0.1-1.30); MONOCYTES % (AUTO) 9.1 % (0.0-11.0); NEUTROPHILS # (AUTO) 7.3 K/uL (1.8-8.9); NEUTROPHILS % (AUTO) 71.6 % (38.5-71.5); PLATELET COUNT (AUTO) 282 K/uL (179-408); RED BLOOD CELL COUNT(AUTO) 2.75 MIL/uL (3.63-4.92); RED CELL DISTRIBUTION WIDTH 15.4 % (12.3-17.7); WHITE BLOOD COUNT (AUTO) 10.2 K/uL (3.8-11.8)
[2024-04-29 07:29] LABS: DIFFERENTIAL COMMENT 1
[2024-04-29 07:50] LABS: ALANINE AMINOTRANSFERASE 6 U/L (14-59); ALBUMIN 1.6 g/dL (3.4-5.0); ALKALINE PHOSPHATASE 94 U/L (50-136); ASPARTATE AMINOTRANSFERASE 18 U/L (15-37); BILIRUBIN,DIRECT 0.1 mg/dL (0.0-0.2); BILIRUBIN,TOTAL 0.2 mg/dL (0.2-1.0); CARBON DIOXIDE 22 mmol/L (21-32); CHLORIDE 108 mmol/L (98-107); CREATININE 3.8 mg/dL (0.6-1.3); GLUCOSE 275 mg/dL (74-106); MAGNESIUM 2.1 mg/dL (1.8-2.4); PHOSPHOROUS 3.6 mg/dL (2.5-4.9); POTASSIUM 3.9 mmol/L (3.5-5.1); SODIUM SERUM 141 mmol/L (136-145)
[2024-04-29 08:46] LABS: UREA NITROGEN, BLOOD 84 mg/dL (7-18)
[2024-04-29] MEDS: NUTRISOURCE FIBER 4 GM PACKET PO SCH (09:00)
[2024-04-29] MEDS: ARGININE/GLUTAMINE/CALCIUM BMB 1 EACH POWD.PACK PO SCH (09:26)
[2024-04-29 13:58] VITALS: O2SAT 96
[2024-04-29 15:19] VITALS: BP 175/56; TEMP 97.9; O2SAT 99
[2024-04-29] MEDS: HYDROCODONE/APAP 10-325 MG TABLET PO PRN (16:25)
[2024-04-29 16:26] VITALS: BP 175/56
[2024-04-29] MEDS: hydrALAZINE HCL 20 MG/1 ML VIAL IV ONE (16:26)
[2024-04-29] MEDS ORDERED: MIRTAZAPINE 15 MG TABLET PO SCH (21:00)
== END 2024-04-29 18:48 | disposition short-term general hospital (02) | DRG 559 ==
PROVIDERS: ADMIT Internal Medicine Pulmonary Disease; ATTEND Physical Medicine & Rehabilitation Pain Medicine
PROC: 05HB33Z Insertion of Infusion Device into Right Basilic Vein, Percutaneous Approach (ICD-10-PCS; principal; 2024-04-28)
DX: S72.142D Displaced intertrochanteric fracture of left femur, subsequent encounter for closed fracture with routine healing (principal); N17.0 Acute kidney failure with tubular necrosis; E44.0 Moderate protein-calorie malnutrition; J98.11 Atelectasis; N39.0 Urinary tract infection, site not specified; E46 Unspecified protein-calorie malnutrition; K56.609 Unspecified intestinal obstruction, unspecified as to partial versus complete obstruction; F33.1 Major depressive disorder, recurrent, moderate; S42.292D Other displaced fracture of upper end of left humerus, subsequent encounter for fracture with routine healing; W19.XXXD Unspecified fall, subsequent encounter; I12.9 Hypertensive chronic kidney disease with stage 1 through stage 4 chronic kidney disease, or unspecified chronic kidney disease; F41.1 Generalized anxiety disorder; N18.9 Chronic kidney disease, unspecified; Z79.899 Other long term (current) drug therapy; Z85.3 Personal history of malignant neoplasm of breast; Z90.13 Acquired absence of bilateral breasts and nipples; D63.1 Anemia in chronic kidney disease; E11.22 Type 2 diabetes mellitus with diabetic chronic kidney disease; E78.5 Hyperlipidemia, unspecified; B96.1 Klebsiella pneumoniae [K. pneumoniae] as the cause of diseases classified elsewhere; G47.00 Insomnia, unspecified; I70.0 Atherosclerosis of aorta; E66.9 Obesity, unspecified; Z68.33 Body mass index [BMI] 33.0-33.9, adult
CPT/HCPCS: 36415; 71045; 74018; 83735; 84100; 85025; 93005; 94760; J0360; J0696; J2270; J2405; J2916

== ENCOUNTER 2024-04-29 20:15 | Inpatient (IN) | payer MEDICARE, OTHER ==
[~2024-04-29] VITALS: Ht 167.6 cm; Wt 95.5 kg
[2024-04-29 19:00] VITALS: BP 103/36; TEMP 98.4; O2SAT 93
[~2024-04-29 20:15] MED LIST changes: -DOCU100T2 PO
[2024-04-29 20:57] VITALS: BP 103/54; TEMP 98.4; O2SAT 93
[2024-04-30] MEDS ORDERED: MAGNESIUM HYDROXIDE 30 ML LIQUID UDC PO PRN (00:15)
[2024-04-30] MEDS ORDERED: ACETAMINOPHEN 325 MG TABLET PO PRN (00:15)
[2024-04-30] MEDS: IV NS 1000 ML 1,000 ML IV PRN (01:10)
[2024-04-30 03:56] VITALS: O2SAT 97
[2024-04-30 07:51] VITALS: BP 181/55; TEMP 97.9; O2SAT 100
[2024-04-30] MEDS ORDERED: ZOLPIDEM 5 MG TABLET PO PRN (08:15)
[2024-04-30] MEDS ORDERED: ACETAMINOPHEN 650 MG SUPP.RECT RC PRN (08:15)
[2024-04-30] MEDS ORDERED: CITALOPRAM 20 MG TABLET PO SCH (09:00)
[2024-04-30] MEDS: MIRALAX 17 GM POWD.PACK PO SCH (09:00)
[2024-04-30] MEDS ORDERED: Medication Not On Formulary EA (Cholecalciferol (Vitamin D3) (Vitamin D3) 1 CAP) PO SCH (09:00)
[2024-04-30] MEDS: NEPRO (VANILLA) 237 ML CAN PO SCH (09:00)
[2024-04-30] MEDS: DOCUSATE SODIUM 100 MG CAPSULE PO SCH (09:00)
[2024-04-30] MEDS: LIDOCAINE 5% PATCH TD SCH (09:01)
[2024-04-30] MEDS: CHOLECALCIFEROL 1,000 UNIT TABLET PO SCH (09:04)
[2024-04-30] MEDS: BACLOFEN 10 MG TABLET PO SCH (09:08)
[2024-04-30] MEDS: ACIDOPHILUS/BULGARICUS CHEW TAB PO SCH (09:08)
[2024-04-30] MEDS: BETA CAROTENE/VIT C & E/MIN TABLET PO SCH (09:09)
[2024-04-30] MEDS: ASCORBIC ACID 500 MG TABLET PO SCH (09:09)
[2024-04-30] MEDS: LINAGLIPTIN 5 MG TABLET PO SCH (09:09)
[2024-04-30] MEDS: CLOTRIMAZOLE 1% CREAM 30 GM TUBE TOP SCH (09:29)
[2024-04-30] MEDS: hydrALAZINE HCL 20 MG/1 ML VIAL IV PRN (09:33)
[2024-04-30] MEDS: PANTOPRAZOLE SODIUM 40 MG TABLET.DR PO SCH (12:35)
[2024-04-30 12:36] LABS: BASOPHILS # (AUTO) 0.1 K/UL (0.0-0.2); BASOPHILS % (AUTO) 0.4 % (0.0-2.0); EOSINOPHILS # (AUTO) 0.1 K/uL (0.0-0.7); EOSINOPHILS % (AUTO) 0.9 % (0.0-7.0); HEMATOCRIT 28.3 % (31.2-41.9); HEMOGLOBIN 8.8 g/dL (10.9-14.3); LYMPHOCYTES # (AUTO) 1.2 K/uL (0.8-4.8); LYMPHOCYTES % (AUTO) 9.7 % (20.5-51.5); MEAN CORPUSCULAR HEMOGLOBIN 29.1 uug (24.7-32.8); MEAN CORPUSCULAR HGB CONC 31 g/dL (32.3-35.6); MEAN CORPUSCULAR VOLUME 93.4 fL (75.5-95.3); MONOCYTES # (AUTO) 0.7 K/uL (0.1-1.30); MONOCYTES % (AUTO) 6.1 % (0.0-11.0); NEUTROPHILS # (AUTO) 10.2 K/uL (1.8-8.9); NEUTROPHILS % (AUTO) 82.9 % (38.5-71.5); PLATELET COUNT (AUTO) 319 K/uL (179-408); RED BLOOD CELL COUNT(AUTO) 3.03 MIL/uL (3.63-4.92); RED CELL DISTRIBUTION WIDTH 16.2 % (12.3-17.7); WHITE BLOOD COUNT (AUTO) 12.3 K/uL (3.8-11.8)
[2024-04-30 12:51] LABS: DIFFERENTIAL COMMENT 1
[2024-04-30 13:02] LABS: ALANINE AMINOTRANSFERASE 9 U/L (14-59); ALBUMIN 1.7 g/dL (3.4-5.0); ALKALINE PHOSPHATASE 97 U/L (50-136); ASPARTATE AMINOTRANSFERASE 25 U/L (15-37); BILIRUBIN,TOTAL 0.3 mg/dL (0.2-1.0); CALCIUM 8.8 mg/dL (8.5-10.1); CARBON DIOXIDE 18 mmol/L (21-32); CHLORIDE 108 mmol/L (98-107); CREATININE 3.3 mg/dL (0.6-1.3); GLUCOSE 202 mg/dL (74-106); POTASSIUM 4.9 mmol/L (3.5-5.1); SODIUM SERUM 139 mmol/L (136-145); TOTAL PROTEIN, SERUM 6.5 g/dL (6.4-8.2); UREA NITROGEN, BLOOD 79 mg/dL (7-18)
[2024-04-30] MEDS: BISACODYL 10 MG SUPP.RECT RC PRN (18:26)
[2024-04-30 19:47] VITALS: BP 155/59; TEMP 97.9; O2SAT 97
[2024-04-30] MEDS: MELATONIN 3 MG TABLET PO SCH (21:00)
[2024-04-30] MEDS ORDERED: Medication Not On Formulary EA (Melatonin 10 MG) PO SCH (21:00)
[2024-04-30] MEDS: ATORVASTATIN 40 MG TABLET PO SCH (21:00)
[2024-04-30] MEDS: ONDANSETRON 4 MG/2 ML VIAL IV PRN (21:36)
[2024-05-01] VITALS (7 sets, daily range): BP systolic 106–164; BP diastolic 31–56; TEMP 97.9–98.9; O2SAT 97–99
[2024-05-01 07:10] LABS: BASOPHILS # (AUTO) 0.1 K/UL (0.0-0.2); BASOPHILS % (AUTO) 0.6 % (0.0-2.0); EOSINOPHILS % (AUTO) 0.4 % (0.0-7.0); HEMATOCRIT 25.3 % (31.2-41.9); HEMOGLOBIN 8.3 g/dL (10.9-14.3); LYMPHOCYTES # (AUTO) 0.8 K/uL (0.8-4.8); LYMPHOCYTES % (AUTO) 7.1 % (20.5-51.5); MEAN CORPUSCULAR HEMOGLOBIN 29.9 uug (24.7-32.8); MEAN CORPUSCULAR HGB CONC 33 g/dL (32.3-35.6); MEAN CORPUSCULAR VOLUME 91.3 fL (75.5-95.3); MONOCYTES # (AUTO) 0.6 K/uL (0.1-1.30); MONOCYTES % (AUTO) 5.3 % (0.0-11.0); NEUTROPHILS # (AUTO) 9.8 K/uL (1.8-8.9); NEUTROPHILS % (AUTO) 86.6 % (38.5-71.5); PLATELET COUNT (AUTO) 345 K/uL (179-408); RED BLOOD CELL COUNT(AUTO) 2.77 MIL/uL (3.63-4.92); RED CELL DISTRIBUTION WIDTH 16.1 % (12.3-17.7); WHITE BLOOD COUNT (AUTO) 11.3 K/uL (3.8-11.8)
[2024-05-01 07:21] LABS: DIFFERENTIAL COMMENT 1
[2024-05-01 07:26] LABS: CALCIUM 8.7 mg/dL (8.5-10.1); CARBON DIOXIDE 17 mmol/L (21-32); CHLORIDE 110 mmol/L (98-107); CREATININE 3.4 mg/dL (0.6-1.3); GLUCOSE 210 mg/dL (74-106); MAGNESIUM 1.9 mg/dL (1.8-2.4); POTASSIUM 4.1 mmol/L (3.5-5.1); SODIUM SERUM 143 mmol/L (136-145); UREA NITROGEN, BLOOD 78 mg/dL (7-18)
[2024-05-01 10:56] LABS: BAND % (MANUAL) 1 % (0-10); LYMPHOCYTES % (MANUAL) 7 % (20-40); MONOCYTES % (MANUAL) 6 % (2-10); NEUTROPHILS % (MANUAL) 85 % (42-75)
[2024-05-01 10:57] LABS: ANISOCYTOSIS 1+; MYELOCYTES % 1 % (0-0); PLATELET ESTIMATE ADEQUATE
[2024-05-01] MEDS ORDERED: DIATR MEGLU/DIATRIZOATE SODIUM 120 ML BOTTLE ONE (18:51)
[2024-05-01] MEDS: HEPARIN SODIUM,PORCINE 5,000 UNITS/ML VIAL SQ SCH (21:04)
[2024-05-02] VITALS (8 sets, daily range): BP systolic 90–148; BP diastolic 33–57; TEMP 97.2–98.6; O2SAT 93–99
[2024-05-02] MEDS: HYDROCODONE/APAP 10-325 MG TABLET PO PRN (06:13)
[2024-05-02 07:46] LABS: BASOPHILS # (AUTO) 0.1 K/UL (0.0-0.2); BASOPHILS % (AUTO) 0.5 % (0.0-2.0); EOSINOPHILS # (AUTO) 0.1 K/uL (0.0-0.7); EOSINOPHILS % (AUTO) 0.9 % (0.0-7.0); HEMATOCRIT 24.5 % (31.2-41.9); LYMPHOCYTES # (AUTO) 1.2 K/uL (0.8-4.8); LYMPHOCYTES % (AUTO) 11.2 % (20.5-51.5); MEAN CORPUSCULAR HEMOGLOBIN 29.7 uug (24.7-32.8); MEAN CORPUSCULAR HGB CONC 33 g/dL (32.3-35.6); MEAN CORPUSCULAR VOLUME 91.4 fL (75.5-95.3); MONOCYTES # (AUTO) 0.8 K/uL (0.1-1.30); MONOCYTES % (AUTO) 7.1 % (0.0-11.0); NEUTROPHILS # (AUTO) 8.7 K/uL (1.8-8.9); NEUTROPHILS % (AUTO) 80.3 % (38.5-71.5); PLATELET COUNT (AUTO) 387 K/uL (179-408); RED BLOOD CELL COUNT(AUTO) 2.68 MIL/uL (3.63-4.92); WHITE BLOOD COUNT (AUTO) 10.8 K/uL (3.8-11.8)
[2024-05-02 08:04] LABS: DIFFERENTIAL COMMENT 1
[2024-05-02 08:08] LABS: CALCIUM 8.6 mg/dL (8.5-10.1); CARBON DIOXIDE 19 mmol/L (21-32); CHLORIDE 113 mmol/L (98-107); CREATININE 3.6 mg/dL (0.6-1.3); GLUCOSE 176 mg/dL (74-106); PHOSPHOROUS 4.9 mg/dL (2.5-4.9); SODIUM SERUM 147 mmol/L (136-145)
[2024-05-02 08:26] LABS: UREA NITROGEN, BLOOD 89 mg/dL (7-18)
[2024-05-02 09:56] LABS: EOSINOPHILS % (MANUAL) 1 % (0-8); LYMPHOCYTES % (MANUAL) 10 % (20-40); MONOCYTES % (MANUAL) 6 % (2-10); NEUTROPHILS % (MANUAL) 77 % (42-75)
[2024-05-02 09:57] LABS: ANISOCYTOSIS 1+; METAMYELOCYTES % 2 % (0-1); MYELOCYTES % 4 % (0-0); PLATELET ESTIMATE ADEQUATE
[2024-05-02] MEDS: IV D5 1/2 NS 1000 ML 1,000 ML IV PRN (12:19)
[2024-05-02] MEDS: IV 1/2NS 1000 ML 1,000 ML IV PRN (12:28)
[2024-05-02] MEDS: CEFTRIAXONE 1 G in IV DEXTROSE 5% 50 ML IV SCH (13:57)
[2024-05-02] MEDS ORDERED: CLINDAMYCIN PHOSPHATE 600 MG/4 ML VIAL IM SCH (14:00)
[2024-05-02 14:15] LABS: THYROID STIMULATING HORMONE 1.554 mIU/mL (0.358-3.740)
[2024-05-02] MEDS: CLINDAMYCIN PHOSPHATE IV 600 MG in IV DEXTROSE 5% 50 ML IV SCH (15:04)
[2024-05-02] MEDS ORDERED: BLOOD SUGAR DIAGNOSTIC 1 EACH STRIP VI SCH (18:00)
[2024-05-02] MEDS ORDERED: INSULIN REGULAR, HUMAN 1000 UNIT/10 ML VIAL SQ PRN (18:00)
[2024-05-02] MEDS ORDERED: DEXTROSE 50% 50 ML DISP.SYRIN IV PRN (18:00)
[2024-05-02 18:10] LABS: *BILIRUBIN,URIN NEGATIVE (NEGATIVE); *BLOOD, URINE 1+ (NEGATIVE); *CLARITY,URINE CLEAR (CLEAR); *COLOR,URINE YELLOW (YELLOW); *KETONES,URINE TRACE (NEGATIVE); *PROTEIN,URINE 2+ (NEGATIVE); *UROBILINOGEN,URINE 0.2 E.U./dl (NORMAL); LEUKOCYTE ESTERASE ,URINE NEGATIVE (NEGATIVE); NITRITE, URINE NEGATIVE (NEGATIVE); UGLUCOSE TRACE (NEGATIVE)
[2024-05-02 18:21] LABS: *CREATININE,URINE 57.9 mg/dL (30-125); *URINE TOTAL PROTEIN RANDOM 106.4 mg/dL (<150/24HR)
[2024-05-02 18:28] LABS: BACTERIA,URINE FEW /HPF (NONE SEEN); SQUAMOUS EPITHELIAL CELL,UR FEW /HPF (NONE SEEN); WBC,URINE 0-3 /HPF (0-3)
[2024-05-03 03:51] VITALS: O2SAT 96
[2024-05-03 05:16] VITALS: BP 149/41; TEMP 98.8; O2SAT 99
[2024-05-03 07:02] LABS: BASOPHILS % (AUTO) 0.3 % (0.0-2.0); EOSINOPHILS # (AUTO) 0.1 K/uL (0.0-0.7); EOSINOPHILS % (AUTO) 0.9 % (0.0-7.0); HEMATOCRIT 25.9 % (31.2-41.9); HEMOGLOBIN 8.6 g/dL (10.9-14.3); LYMPHOCYTES # (AUTO) 1.1 K/uL (0.8-4.8); LYMPHOCYTES % (AUTO) 8.8 % (20.5-51.5); MEAN CORPUSCULAR HEMOGLOBIN 29.9 uug (24.7-32.8); MEAN CORPUSCULAR HGB CONC 33 g/dL (32.3-35.6); MEAN CORPUSCULAR VOLUME 90.5 fL (75.5-95.3); MONOCYTES # (AUTO) 0.8 K/uL (0.1-1.30); MONOCYTES % (AUTO) 6.3 % (0.0-11.0); NEUTROPHILS % (AUTO) 83.7 % (38.5-71.5); PLATELET COUNT (AUTO) 409 K/uL (179-408); RED BLOOD CELL COUNT(AUTO) 2.86 MIL/uL (3.63-4.92); RED CELL DISTRIBUTION WIDTH 16.1 % (12.3-17.7)
[2024-05-03 07:10] LABS: DIFFERENTIAL COMMENT 1
[2024-05-03 07:15] LABS: CALCIUM 8.7 mg/dL (8.5-10.1); CARBON DIOXIDE 19 mmol/L (21-32); CHLORIDE 112 mmol/L (98-107); CHOLESTEROL 115 mg/dL (<200); CREATININE 3.4 mg/dL (0.6-1.3); GLUCOSE 178 mg/dL (74-106); HDL CHOLESTEROL 39 mg/dL (40-60); MAGNESIUM 1.9 mg/dL (1.8-2.4); PHOSPHOROUS 4.4 mg/dL (2.5-4.9); POTASSIUM 3.5 mmol/L (3.5-5.1); SODIUM SERUM 146 mmol/L (136-145); TRIGLYCERIDES 194 MG/DL (30-150)
[2024-05-03 07:33] LABS: UREA NITROGEN, BLOOD 81 mg/dL (7-18)
[2024-05-03] MEDS ORDERED: IPRATROPIUM/ALBUTEROL SULFATE 14.7 GM INHALER INH PRN (07:45)
[2024-05-03] MEDS ORDERED: IPRATROPIUM BROMIDE 0.5 MG/2.5 ML NEBU NEB PRN (08:00)
[2024-05-03] MEDS ORDERED: ALBUTEROL SULFATE 2.5 MG/3 ML NEBU NEB PRN (08:00)
[2024-05-03 08:15] VITALS: BP 135/45; TEMP 98.8; O2SAT 98
[2024-05-03] MEDS: VENLAFAXINE XR 37.5 MG CAP.SR.24H PO SCH (09:00)
[2024-05-03] MEDS: PANTOPRAZOLE SODIUM 40 MG VIAL IV SCH (09:53)
[2024-05-03] MEDS ORDERED: PHENOL/SODIUM PHENOLATE SPRAY 177 ML BOTTLE MM PRN (11:15)
[2024-05-03] MEDS ORDERED: PANTOPRAZOLE SODIUM 40 MG VIAL IV SCH (17:00)
[2024-05-03] MEDS: MORPHINE SULFATE PF IV DRIP 100 MG in IV DEXTROSE 5% 96 ML IV PRN (18:21)
[2024-05-03] MEDS: LORAZEPAM 1 MG TABLET PO PRN (20:32)
[2024-05-04] MEDS ORDERED: MORPHINE SULFATE PF IV DRIP 100 MG in IV DEXTROSE 5% 96 ML IV PRN (05:45)
[2024-05-04] MEDS: MORPHINE SULFATE PF IV DRIP 100 MG in IV DEXTROSE 5% 96 ML IV PRN (09:10)
[2024-05-04 15:19] VITALS: O2SAT 96
== END 2024-05-05 03:40 | DRG 388 ==
LOC: MEDSURG3 20:15
PROVIDERS: ADMIT Internal Medicine; ATTEND Student in an Organized Health Care Education/Training Program
PROC: 0D9670Z Drainage of Stomach with Drainage Device, Via Natural or Artificial Opening (ICD-10-PCS; principal; 2024-04-30)
DX: K56.600 Partial intestinal obstruction, unspecified as to cause (principal); G92.8 Other toxic encephalopathy; J69.0 Pneumonitis due to inhalation of food and vomit; N17.0 Acute kidney failure with tubular necrosis; F33.1 Major depressive disorder, recurrent, moderate; I82.611 Acute embolism and thrombosis of superficial veins of right upper extremity; N39.0 Urinary tract infection, site not specified; J98.11 Atelectasis; E44.0 Moderate protein-calorie malnutrition; K92.2 Gastrointestinal hemorrhage, unspecified; Z53.20 Procedure and treatment not carried out because of patient's decision for unspecified reasons; Z66 Do not resuscitate; Z51.5 Encounter for palliative care; F41.1 Generalized anxiety disorder; D63.1 Anemia in chronic kidney disease; G47.00 Insomnia, unspecified; E78.5 Hyperlipidemia, unspecified; Z85.3 Personal history of malignant neoplasm of breast; S72.142D Displaced intertrochanteric fracture of left femur, subsequent encounter for closed fracture with routine healing; W19.XXXD Unspecified fall, subsequent encounter; S42.202D Unspecified fracture of upper end of left humerus, subsequent encounter for fracture with routine healing; R01.1 Cardiac murmur, unspecified; Z88.8 Allergy status to other drugs, medicaments and biological substances; Z91.014 Allergy to mammalian meats; E66.9 Obesity, unspecified; Z68.33 Body mass index [BMI] 33.0-33.9, adult; Z71.3 Dietary counseling and surveillance; E88.09 Other disorders of plasma-protein metabolism, not elsewhere classified; E11.22 Type 2 diabetes mellitus with diabetic chronic kidney disease; N18.9 Chronic kidney disease, unspecified; I13.10 Hypertensive heart and chronic kidney disease without heart failure, with stage 1 through stage 4 chronic kidney disease, or unspecified chronic kidney disease; I70.0 Atherosclerosis of aorta; S31.000A Unspecified open wound of lower back and pelvis without penetration into retroperitoneum, initial encounter; X58.XXXA Exposure to other specified factors, initial encounter; Y92.89 Other specified places as the place of occurrence of the external cause
CPT/HCPCS: 36415; 70450; 71045; 74018; 74250; 83735; 83921; 84100; 84300; 84443; 85025; A4663; A6213; G0378; J0360; J0696; J1644; J2274; J2405; J2470; J3490; J7040; Q9963